=== PATIENT | male | born 1975 | race Caucasian/White ===

== ENCOUNTER 2017-04-25 23:24 | Emergency (ER) | payer SELFPAY ==
--- NOTE | 2017-04-26 00:53 | RADIOLOGY REPORT (SQ) ---
EXAM DESCRIPTION: CHEST PA/LAT CLINICAL HISTORY: 41 years, Male, SOB COMPARISON: None. NUMBER OF VIEWS: 1 TECHNIQUE: Routine radiographic technique. LIMITATIONS: None. FINDINGS: Cardiac size and pulmonary vasculature are normal. Lungs are clear. No pleural effusions or pneumothorax. Bones appear normal on this single view. No free peritoneal gas under the hemidiaphragms. IMPRESSION: Portable AP chest radiograph. 2011 [employer]- All Rights Reserved
[2017-04-26 02:02] LABS: ABSOLUTE BASOPHILS # (AUTO) 0.1 10^3/uL (0.0-0.2); ABSOLUTE LYMPHOCYTES (AUTO) 1.5 10^3/uL (0.5-4.7); ABSOLUTE MONOCYTES (AUTO) 1.2 10^3/uL (0.1-1.4); ABSOLUTE NEUT (AUTO) 11.5 10^3/uL (1.7-8.2); BASOPHILS % (AUTO) 0.8 % (0-2); EOSINOPHILS % (AUTO) 0.2 % (0-6); HEMATOCRIT 44.4 % (37.9-51.0); HEMOGLOBIN 15.9 g/dL (13.5-17.0); HGB HCT DIFFERENCE 3.3; LYMPHOCYTES % (AUTO) 10.5 % (13-45); MEAN CORPUSCULAR HEMOGLOBIN 31.9 pg (27.0-33.4); MEAN CORPUSCULAR HGB CONC 35.8 g/dL (32.0-36.0); MEAN CORPUSCULAR VOLUME 89 fl (80-97); MONOCYTES % (AUTO) 8.4 % (3-13); RED BLOOD COUNT 4.99 10^6/uL (4.35-5.55); RED CELL DISTRIBUTION WIDTH 15.4 % (11.5-14.0); SEGMENTED NEUTROPHILS % (AUTO) 80.1 % (42-78); WHITE BLOOD COUNT 14.3 10^3/uL (4.0-10.5)
[2017-04-26 02:11] LABS: ALANINE AMINOTRANSFERASE 37 U/L (21-72); ALKALINE PHOSPHATASE 51 U/L (38-126); ANION GAP 15 (5-19); ASPARTATE AMINO TRANSFERASE 18 U/L (17-59); BILIRUBIN,DIRECT 0.4 mg/dL (0.0-0.4); BILIRUBIN,TOTAL 1.5 mg/dL (0.2-1.3); BLOOD UREA NITROGEN 13 mg/dL (7-20); CALCIUM 10.4 mg/dL (8.4-10.2); CARBON DIOXIDE 26 mmol/L (22-30); CHLORIDE 103 mmol/L (98-107); CREATINE KINASE 30 U/L (55-170); CREATININE RESULT 1.27 mg/dL (0.52-1.25); GLUCOSE 94 mg/dL (75-110); POTASSIUM 4.2 mmol/L (3.6-5.0); SODIUM 144.4 mmol/L (137-145); TOTAL PROTEIN 7.6 g/dL (6.3-8.2)
[2017-04-26] MEDS ORDERED: MORPHINE SULFATE IR 15 MG TABLET PO ONE (02:19)
[2017-04-26] MEDS ORDERED: NAPROXEN 250 MG TABLET PO ONE (02:19)
[2017-04-26] MEDS ORDERED: LIDOCAINE 5% (700 MG) TRANSDERMAL ADH..PATCH TP ONE (02:19)
[2017-04-26 02:24] LABS: CREATINE KINASE MB 0.92 ng/mL (<4.55)
[2017-04-26 02:29] LABS: TROPONIN I < 0.012 ng/mL
--- NOTE | 2017-04-26 02:45 | ER Document Report ---
ED General - General Chief Complaint: Back Pain Stated Complaint: BACK PAIN Time Seen by Provider: 04/26/17 01:50 Notes: Patient is a 41-year-old male who presents with 36 hours of right thoracic back pain. States this started yesterday after he bent over to unplug a cord and he abruptly developed this back pain. It is described as a severe, constant, aching pain to the right upper back. He notes that he intermittently has pain rating into his right buttock. Nothing improves the pain as he did try Flexeril and a tramadol at home. He states any form of movement worsens the pain. He has a history of chronic back pain but states that this is different than his usual back pain. He denies any bowel or bladder incontinence, urinary retention, focal weakness or numbness, or inability to ambulate. He states he tends he coughs or sneezes this does worsen the pain. He has not seen his primary doctor regarding today's concerns. TRAVEL OUTSIDE OF THE [place] IN LAST 30 DAYS: No - Related Data Allergies/Adverse Reactions: hydromorphone [From Dilaudid] Allergy (Verified 04/26/17 02:42) iron Allergy (Verified 04/26/17 02:42) metronidazole Allergy (Verified 04/26/17 02:42) Sulfa (Sulfonamide Antibiotics) Allergy (Verified 04/26/17 02:42) Past Medical History - General Information source: Patient - Social History Smoking Status: Never Smoker Frequency of alcohol use: None Drug Abuse: None Lives with: Alone Family History: Reviewed & Not Pertinent Patient has suicidal ideation: No Patient has homicidal ideation: No Renal/ Medical History: Denies: Hx Peritoneal Dialysis Review of Systems - Review of Systems Notes: Constitutional: Negative for fever. HENT: Negative for sore throat. Eyes: Negative for visual changes. Cardiovascular: Negative for chest pain. Respiratory: Negative for shortness of breath. Gastrointestinal: Negative for abdominal pain, vomiting or diarrhea. Genitourinary: Negative for dysuria. Musculoskeletal: Positive for back pain. Skin: Negative for rash. Neurological: Negative for headaches, weakness or numbness. 10 point ROS negative except as marked above and in HPI. Physical Exam - Vital signs Vitals: Temp Pulse Resp BP Pulse Ox 97.9 F 136 H 24 H 167/107 H 98 04/25/17 23:32 04/25/17 23:32 04/25/17 23:32 04/25/17 23:32 04/25/17 23:32 Interpretation: Tachycardic, Tachypneic Notes: PHYSICAL EXAMINATION: GENERAL: Well-appearing, well-nourished and in no acute distress. HEAD: Atraumatic, normocephalic. EYES: Pupils equal round and reactive to light, extraocular movements intact, sclera anicteric, conjunctiva are normal. ENT: nares patent, oropharynx clear without exudates. Moist mucous membranes. NECK: Normal range of motion, supple without lymphadenopathy LUNGS: Breath sounds clear to auscultation bilaterally and equal. No wheezes rales or rhonchi. HEART: Regular rate and rhythm without murmurs ABDOMEN: Soft, nontender, normoactive bowel sounds. No guarding, no rebound. No masses appreciated. EXTREMITIES: Normal range of motion, no pitting or edema. No cyanosis. Back: No midline spinal tenderness, step-offs or deformities. There is pain on palpation of the right periscapular region. NEUROLOGICAL: 5 out of 5 strength both distally and proximally bilateral lower extremities. 2+ patellar reflexes bilaterally. No clonus. Sensation grossly intact in the bilateral lower extremities. Patient is able to ambulate without difficulty. PSYCH: Normal mood, normal affect. SKIN: Warm, Dry, normal turgor, no rashes or lesions noted. Course - Re-evaluation Re-evalutation: 04/26/17 02:42 Presentation of a well appearing patient complaining of acute on chronic back pain. No rapid progression of symptoms, systemic symptoms including fevers, chills, weight loss, history of recent bacterial infection, bilateral symptoms, numbness, weakness, difficulty walking, urinary retention or bowel incontinence , personal history of cancer, immunosuppression, diabetes, known AAA, or history of IV drug use. Exam is without point tenderness over vertebral bodies , pulsatile abdominal mass, and patient has symmetric and intact lower extremity strength, sensation, and reflexes without clonus. 2+ symmetric medial malleolar and dorsalis pedis pulses. Patient initially had tachycardia and tachypnea on presentation but these were resolved at the time of my evaluation. In triage a broad panel of laboratories were ordered and are noted to be normal. Patient denies chest pain to me. Troponin however has been ordered and is noted to be normal. Chest x-ray likewise is normal. Based on history and physical, I have a very low suspicion of a concerning etiology of pain including epidural compression syndrome, spinal infection, transverse myelitis, malignancy, abdominal aortic aneurysm, renal colic, acute lower extremity claudication, neurogenic claudication, ankylosing spondylitis, or other intra-abdominal process. Due to absence of concerning risk factors in history and physical as well as absence of rapidly progressive, severe, or bilateral symptoms, will defer imaging at this point. Plan to manage conservatively with outpatient analgesia, analgesia, and physical therapy. - Acetaminophen 650 q 4 + ibuprofen 600 q 6 - Continue normal daily activities as tolerated by pain - Provide with standard musculoskeletal back pain exercise instructions - Instruct to follow up with primary care provider if symptoms not improving - Provide careful return precautions and concerning symptoms to watch for. 04/26/17 02:44 - Vital Signs Vital signs: Temp Pulse Resp BP Pulse Ox 97.4 F 98 18 136/96 H 99 04/26/17 03:00 04/26/17 04:32 04/26/17 04:32 04/26/17 03:00 04/26/17 04:32 - Laboratory Result Diagrams: 04/26/17 01:50 04/26/17 01:50 Laboratory results interpreted by me: 04/26/17 04/26/17 01:50 01:50 WBC 14.3 H RDW 15.4 H Seg Neutrophils % 80.1 H Lymphocytes % 10.5 L Absolute Neutrophils 11.5 H Creatinine 1.27 H Calcium 10.4 H Total Bilirubin 1.5 H Creatine Kinase 30 L - Diagnostic Test Radiology reviewed: Image reviewed, Reports reviewed Radiology results interpreted by me: 04/26/17 02:43 Chest x-ray: No acute pneumothorax or infiltrate - EKG Interpretation by Me Additional EKG results interpreted by me: 04/26/17 02:45 Sinus tachycardia. Rate 109. No ST elevations or depressions. QTC is 415. Discharge - Discharge Clinical Impression: Right-sided thoracic back pain Qualifiers: Chronicity: acute Qualified Code(s): M54.6 - Pain in thoracic spine Condition: Good Disposition: HOME, SELF-CARE Additional Instructions: You have been seen in the Emergency Department (ED) today for back pain. Your workup and exam have not shown any acute abnormalities and you are likely suffering from muscle strain or possible problems with your discs, but there is no treatment that will fix your symptoms at this time. Please take the naproxen that has been prescribed as directed. You should also purchase a local lidocaine cream such as "aspercreme with lidocaine" and use per bottle instructions to the affected area. Apply heat to the area as often as you are able. Continue to keep active and avoid prolonged periods of bed rest. Please follow up with your doctor as soon as possible regarding today's ED visit and your back pain. Return to the ED for worsening back pain, fever, weakness or numbness of either leg, or if you develop either (1) an inability to urinate or have bowel movements, or (2) loss of your ability to control your bathroom functions (if you start having "accidents"), or if you develop other new symptoms that concern you.concern you. Prescriptions: Benzonatate [Tessalon Perles 100 mg Capsule] 100 mg PO Q8HP PRN #40 capsule PRN Reason: Cyclobenzaprine HCl [Flexeril 10 mg Tablet] 10 mg PO TIDP PRN #15 tab PRN Reason: Naproxen 500 mg PO BID #60 tablet Referrals: GIL MARTÍNEZ MD [Primary Care Provider] - Follow up as needed
[2017-04-26 03:03] VITALS: BP 136/96
[2017-04-26] MEDS ORDERED: BENZONATATE 100 MG CAPSULE PO ONE (04:13)
--- NOTE | 2017-04-26 06:22 | EKG REPORT ---
SEVERITY:- BORDERLINE ECG - SINUS TACHYCARDIA BORDERLINE T ABNORMALITIES, INFERIOR LEADS : Confirmed by: Christie Parra MD 26-Apr-2017 06:22:09
== END 2017-04-26 04:32 | disposition home or self-care (01) ==
LOC: ER 23:24
DX: G89.29 Other chronic pain (principal); M54.6 Pain in thoracic spine; Z88.6 Allergy status to analgesic agent; Z88.2 Allergy status to sulfonamides
CPT/HCPCS: 36415; 71020; 80053; 82550; 82553; 84484; 85025; 93005; 93010; 99284

== ENCOUNTER 2017-05-06 22:47 | Emergency (ER) | payer OTHER ==
[2017-05-07] MEDS ORDERED: KETOROLAC TROMETHAMINE INJ/PF 30 MG/1 ML SDV IM ONE (00:27)
[2017-05-07] MEDS ORDERED: LIDOCAINE 5% (700 MG) TRANSDERMAL ADH..PATCH TP ONE (00:27)
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
[2017-05-07 01:47] VITALS: BP 152/88
== END 2017-05-07 01:06 | disposition home or self-care (01) ==
LOC: ER 22:47
DX: M54.6 Pain in thoracic spine (principal); V89.2XXA Person injured in unspecified motor-vehicle accident, traffic, initial encounter; R00.0 Tachycardia, unspecified; Z88.6 Allergy status to analgesic agent; Z88.2 Allergy status to sulfonamides
CPT/HCPCS: 99283; 96372; J1885

== ENCOUNTER 2017-08-09 22:02 | Emergency (ER) | payer OTHER ==
[2017-08-10] MEDS ORDERED: TRAMADOL HCL 50 MG TABLET PO ONE (00:35)
[2017-08-10] MEDS ORDERED: PREDNISONE 20 MG TABLET PO ONE (00:35)
--- NOTE | 2017-08-10 00:36 | ER Document Report ---
ED Medical Screen (RME) - General Chief Complaint: Diarrhea Stated Complaint: ABDOMINAL PAIN Time Seen by Provider: 08/10/17 00:28 Notes: 41-year-old male comes emergency department for chief complaint of lower abdominal pain, up to 20 bowel movements a day with bloody bowel movements, reports a history of ulcerative colitis, states she is getting worse. Previously on prednisone and many other medications although he states prednisone has helped him the most. He denies fever or chills. He denies upper abdominal pain, flank pain, vomiting. TRAVEL OUTSIDE OF THE [place] IN LAST 30 DAYS: No - Related Data Allergies/Adverse Reactions: hydromorphone [From Dilaudid] Allergy (Verified 04/26/17 02:42) iron Allergy (Verified 04/26/17 02:42) metronidazole Allergy (Verified 04/26/17 02:42) Sulfa (Sulfonamide Antibiotics) Allergy (Verified 04/26/17 02:42) Past Medical History Renal/ Medical History: Denies: Hx Peritoneal Dialysis Physical Exam - Vital signs Vitals: Temp Pulse Resp BP Pulse Ox 98.9 F 108 H 16 117/86 H 97 08/09/17 22:31 08/09/17 22:31 08/09/17 22:31 08/09/17 22:31 08/09/17 22:31 - Abdominal Tenderness: Tender - General lower abdominal tenderness, difficult to examine while sitting no obvious guarding, rigidity, or rebound tenderness Course - Vital Signs Vital signs: Temp Pulse Resp BP Pulse Ox 98.9 F 108 H 16 117/86 H 97 08/09/17 22:31 08/09/17 22:31 08/09/17 22:31 08/09/17 22:31 08/09/17 22:31
[2017-08-10 01:53] LABS: ABSOLUTE BASOPHILS # (AUTO) 0.1 10^3/uL (0.0-0.2); ABSOLUTE EOSINOPHILS # (AUTO) 0.5 10^3/uL (0.0-0.6); ABSOLUTE LYMPHOCYTES (AUTO) 1.3 10^3/uL (0.5-4.7); ABSOLUTE MONOCYTES (AUTO) 1.3 10^3/uL (0.1-1.4); ABSOLUTE NEUT (AUTO) 8.6 10^3/uL (1.7-8.2); BASOPHILS % (AUTO) 0.8 % (0-2); HEMATOCRIT 41.5 % (37.9-51.0); HEMOGLOBIN 14.5 g/dL (13.5-17.0); LYMPHOCYTES % (AUTO) 10.9 % (13-45); MEAN CORPUSCULAR HEMOGLOBIN 32.2 pg (27.0-33.4); MEAN CORPUSCULAR VOLUME 92 fl (80-97); MONOCYTES % (AUTO) 11.3 % (3-13); PLATELET COUNT 248 10^3/uL (150-450); RED BLOOD COUNT 4.51 10^6/uL (4.35-5.55); RED CELL DISTRIBUTION WIDTH 13.5 % (11.5-14.0); TOTAL CELLS COUNTED % (AUTO) 100 %; WHITE BLOOD COUNT 11.8 10^3/uL (4.0-10.5)
[2017-08-10 02:12] LABS: ANION GAP 14 (5-19); BLOOD UREA NITROGEN 13 mg/dL (7-20); CALCIUM 9.6 mg/dL (8.4-10.2); CARBON DIOXIDE 26 mmol/L (22-30); CHLORIDE 102 mmol/L (98-107); GLUCOSE 94 mg/dL (75-110); POTASSIUM 4.1 mmol/L (3.6-5.0); SODIUM 141.8 mmol/L (137-145)
[2017-08-10] MEDS ORDERED: FENTANYL CITRATE INJ/PF 100 MCG/2 ML AMPUL IV ONE ×2 (02:29→03:11)
[2017-08-10] MEDS ORDERED: ONDANSETRON HCL INJ/PF 4 MG/2 ML SDV IV ONE (02:30)
[2017-08-10] MEDS ORDERED: METHYLPREDNISOLONE INJ 125 MG/2 ML SDV IV ONE (02:30)
[2017-08-10] MEDS ORDERED: NORMAL SALINE 1000 ML 1,000 ML IV ONE (02:30)
--- NOTE | 2017-08-10 02:32 | ER Document Report ---
ED General - General Chief Complaint: Diarrhea Stated Complaint: ABDOMINAL PAIN Time Seen by Provider: 08/10/17 00:28 Notes: Patient is a 41-year-old male with a past medical history of ulcerative colitis not currently on any immunosuppressive therapies who presents with 3 weeks of generalized abdominal pain with associated diarrhea and hematochezia. He describes this as a severe, constant, generalized cramping pain to his abdomen. States that the symptoms been gradually worsening since onset. Patient states that he was abruptly discontinued off of his chronic prednisone 40 mg daily approximately 1 month ago. He states that since that time he has had symptoms consistent with his typical ulcerative colitis flare. Nothing is new or different that today that prompted a visit to the emergency department but his pain has become intolerable. He states that nothing has worked for this in the past other than prednisone. He has not had any vomiting but states she has been quite nauseated. He has been able to tolerate oral intake but states that this seems to tend to worsen his pain. He has not seen his primary doctor or GI doctor regarding today's concerns. He denies any fever, chest pain, shortness of breath or syncope. TRAVEL OUTSIDE OF THE [place] IN LAST 30 DAYS: No - Related Data Allergies/Adverse Reactions: hydromorphone [From Dilaudid] Allergy (Verified 04/26/17 02:42) iron Allergy (Verified 04/26/17 02:42) metronidazole Allergy (Verified 04/26/17 02:42) Sulfa (Sulfonamide Antibiotics) Allergy (Verified 04/26/17 02:42) Past Medical History - General Information source: Patient - Social History Smoking Status: Never Smoker Frequency of alcohol use: None Drug Abuse: None Lives with: Family Family History: Reviewed & Not Pertinent Patient has suicidal ideation: No Patient has homicidal ideation: No Renal/ Medical History: Denies: Hx Peritoneal Dialysis Review of Systems - Review of Systems Notes: Constitutional: Negative for fever. HENT: Negative for sore throat. Eyes: Negative for visual changes. Cardiovascular: Negative for chest pain. Respiratory: Negative for shortness of breath. Gastrointestinal: Positive for abdominal pain, nausea and diarrhea Genitourinary: Negative for dysuria. Musculoskeletal: Negative for back pain. Skin: Negative for rash. Neurological: Negative for headaches, weakness or numbness. 10 point ROS negative except as marked above and in HPI. Physical Exam - Vital signs Vitals: Temp Pulse Resp BP Pulse Ox 98.9 F 108 H 16 117/86 H 97 08/09/17 22:31 18 22:31 08/09/17 22:31 08/09/17 22:31 08/09/17 22:31 Interpretation: Tachycardic Notes: PHYSICAL EXAMINATION: GENERAL: Appears mildly uncomfortable but in no acute distress HEAD: Atraumatic, normocephalic. EYES: Pupils equal round and reactive to light, extraocular movements intact, sclera anicteric, conjunctiva are normal. ENT: nares patent, oropharynx clear without exudates. Moderately dry mucous membranes. NECK: Normal range of motion, supple without lymphadenopathy LUNGS: Breath sounds clear to auscultation bilaterally and equal. No wheezes rales or rhonchi. HEART: Regular rate and rhythm without murmurs ABDOMEN: Soft, generalized tenderness to palpation but no localized areas of tenderness, normoactive bowel sounds. No guarding, no rebound. No masses appreciated. EXTREMITIES: Normal range of motion, no pitting or edema. No cyanosis. NEUROLOGICAL: No focal neurological deficits. Moves all extremities spontaneously and on command. PSYCH: Somewhat anxious SKIN: Warm, Dry, normal turgor, no rashes or lesions noted. Course - Re-evaluation Re-evalutation: 08/10/17 02:31 Patient presents with 3 weeks of generalized abdominal pain overall unchanged today with associated diarrhea with intermittent periods of small amounts of blood in his diarrhea. He states this feels exactly the same as prior episodes of ulcerative colitis. On abdominal examination patient has some mild generalized abdominal tenderness but no rebound or guarding. He is overall nontoxic in appearance. Vitals are within normal limits with patient states that this episode started after he was abruptly discontinued off prednisone. This is consistent with an acute ulcerative colitis flare. His labs are overall unremarkable. Will proceed with IV fluids, pain control, steroids and reassessment 08/10/17 03:23 Patient has had near complete relief of his pain at this time. He remains nontoxic in appearance, no vomiting, has tolerated oral intake without difficulty. Labs unremarkable without any evidence of anemia, no significant leukocytosis or hepatitis. Repeat abdominal exam remains reassuring. Two-view of the abdomen does not demonstrate any evidence of obstruction or perforation. Will be discharged home with prednisone at his former dose and has been instructed that he will need to follow-up with GI medicine for his chronic ulcerative colitis. Will also send with a limited number of pain medications and nausea medicines. At this time will discharge with return precautions and follow-up recommendations. Verbal discharge instructions given a the bedside and opportunity for questions given. Medication warnings reviewed. Patient is in agreement with this plan and has verbalized understanding of return precautions and the need for primary care follow-up in the next 24-72 hours. - Vital Signs Vital signs: Temp Pulse Resp BP Pulse Ox 98.9 F 108 H 16 117/86 H 97 08/09/17 22:31 08/09/17 22:31 08/09/17 22:31 08/09/17 22:31 08/09/17 22:31 - Laboratory Result Diagrams: 08/10/17 01:30 08/10/17 01:30 Laboratory results interpreted by me: 08/10/17 01:30 WBC 11.8 H Lymphocytes % 10.9 L Absolute Neutrophils 8.6 H - Diagnostic Test Radiology reviewed: Image reviewed, Reports reviewed Radiology results interpreted by me: 08/10/17 03:24 2 view of the abdomen: No free air or evidence of obstruction Discharge - Discharge Clinical Impression: Generalized abdominal pain Ulcerative colitis, acute Qualifiers: Digestive disease complication type: without complication Qualified Code(s): K51.90 - Ulcerative colitis, unspecified, without complications Diarrhea Qualifiers: Diarrhea type: unspecified type Qualified Code(s): R19.7 - Diarrhea, unspecified Condition: Good Disposition: HOME, SELF-CARE Additional Instructions: Please follow-up with your GI doctor and primary care physician at your earliest ability regarding today's visit. Return if you have worsening abdominal pain, B, with a tolerate fluids for more than 12 hours, have worsening of your diarrhea, or have any other symptoms that are worrisome to you. Please use the [place] at that you have been sent home with a very limited basis for pain control. Take the steroids as prescribed. Prescriptions: Prednisone 40 mg PO DAILY #60 tablet
[2017-08-10] MEDS ORDERED: FENTANYL CITRATE INJ/PF 100 MCG/2 ML AMPUL ONE (03:11)
--- NOTE | 2017-08-10 03:31 | RADIOLOGY REPORT (SQ) ---
EXAM DESCRIPTION: ABDOMEN 2 VIEWS CLINICAL HISTORY: eval free air, obstruction COMPARISON: None. FINDINGS: 2 views of the abdomen. No free intraperitoneal air. Air-filled loops of nondilated large and small bowel. No abnormal calcifications. No acute osseous abnormalities. Lung bases are clear. IMPRESSION: Nonobstructive bowel gas pattern.
[2017-08-10] MEDS ORDERED: ONDANSETRON ODT 4 MG TAB (6 TAB/ER DISP) PO PRN (03:41)
[2017-08-10] MEDS ORDERED: HYDROCODONE/ACETAMINOPHEN 5-325 MG (6 TAB/ER DISP) PO PRN (03:41)
[2017-08-10 04:45] VITALS: BP 100/67
== END 2017-08-10 04:45 | disposition home or self-care (01) ==
LOC: ER 22:02
DX: K51.90 Ulcerative colitis, unspecified, without complications (principal); R10.84 Generalized abdominal pain; K92.1 Melena; R19.7 Diarrhea, unspecified; R11.0 Nausea; Z88.5 Allergy status to narcotic agent; Z88.8 Allergy status to other drugs, medicaments and biological substances; Z88.2 Allergy status to sulfonamides
CPT/HCPCS: 96376; 99284; 96361; 96374; 96375; 36415; 85025; 80048; 74019; J3010; J2930; J7512; J2405; J7030

== ENCOUNTER 2017-08-12 12:06 | Emergency (ER) | payer SELFPAY ==
--- NOTE | 2017-08-12 14:48 | ER Document Report ---
ED Medical Screen (RME) - General Chief Complaint: Flank Pain Stated Complaint: FLANK PAIN Time Seen by Provider: 08/12/17 14:42 Mode of Arrival: Ambulatory Information source: Patient Notes: 41 yo male c/o severe sharp left flank pain that radiates to the LLQ which is different that the with ulcerativ colitis pain usually managed with prednisone 40mg daily which he is still on. Dry heaves, nausea, diarrhea. No hx of kidney stones. No fever. Diarrhea today 9 with blood- red., bleeding getting worse for a month. Moaning and groaning. TRAVEL OUTSIDE OF THE [place] IN LAST 30 DAYS: No - Related Data Allergies/Adverse Reactions: hydromorphone [From Dilaudid] Allergy (Verified 04/26/17 02:42) iron Allergy (Verified 04/26/17 02:42) metronidazole Allergy (Verified 04/26/17 02:42) Sulfa (Sulfonamide Antibiotics) Allergy (Verified 04/26/17 02:42) Past Medical History Renal/ Medical History: Denies: Hx Peritoneal Dialysis Physical Exam - Vital signs Vitals: Temp Pulse Resp BP Pulse Ox 97.6 F 107 H 20 108/71 99 08/12/17 12:59 08/12/17 12:59 08/12/17 12:59 08/12/17 12:59 08/12/17 12:59 Course - Vital Signs Vital signs: Temp Pulse Resp BP Pulse Ox 97.6 F 107 H 20 108/71 99 08/12/17 12:59 08/12/17 12:59 08/12/17 12:59 08/12/17 12:59 08/12/17 12:59
[2017-08-12] MEDS ORDERED: NORMAL SALINE 1000 ML 1,000 ML IV ONE ×2 (14:49→17:20)
[2017-08-12] MEDS ORDERED: MORPHINE SULFATE 10 MG/ML INJ IM ONE (14:49)
[2017-08-12] MEDS ORDERED: ONDANSETRON 4 MG TAB.RAPDIS PO ONE (14:50)
--- NOTE | 2017-08-12 15:39 | ER Document Report ---
ED General - General Chief Complaint: Flank Pain Stated Complaint: FLANK PAIN Time Seen by Provider: 08/12/17 14:42 Mode of Arrival: Ambulatory Notes: 41-year-old male with sudden onset of left flank pain shooting down into the groin. No prior history of kidney stones. Has a history of Crohn's disease and always has diarrhea. States that this is very different than anything he has ever had before. Is rated as a 10/10 on a numeric pain scale. TRAVEL OUTSIDE OF THE [place] IN LAST 30 DAYS: No - HPI Onset: Just prior to arrival Onset/Duration: Sudden Quality of pain: Sharp Severity: Severe Pain Level: 5 Associated symptoms: Nausea, Vomiting Exacerbated by: Denies Relieved by: Denies Similar symptoms previously: No - Related Data Allergies/Adverse Reactions: hydromorphone [From Dilaudid] Allergy (Verified 04/26/17 02:42) iron Allergy (Verified 04/26/17 02:42) metronidazole Allergy (Verified 04/26/17 02:42) Sulfa (Sulfonamide Antibiotics) Allergy (Verified 04/26/17 02:42) Past Medical History - General Information source: Patient - Social History Smoking Status: Never Smoker Frequency of alcohol use: None Drug Abuse: None Lives with: Family Family History: Reviewed & Not Pertinent Patient has suicidal ideation: No Patient has homicidal ideation: No - Past Medical History Cardiac Medical History: Reports: None Pulmonary Medical History: Reports: None EENT Medical History: Reports: None Neurological Medical History: Reports: None Endocrine Medical History: Reports: None Renal/ Medical History: Reports: None. Denies: Hx Peritoneal Dialysis Malignancy Medical History: Reports None GI Medical History: Reports: Other - ulcerative colitis Review of Systems - Review of Systems Constitutional: denies: Chills, Fever, Malaise, Weakness EENT: denies: Blurred vision, Tearing, Double vision, Ear pain Cardiovascular: denies: Chest pain, Palpitations, Heart racing, Orthopnea, Dyspnea Respiratory: denies: Cough, Hurts to breathe, Short of breath, Wheezing Gastrointestinal: Abdominal pain, Diarrhea, Nausea, Vomiting Genitourinary: Flank pain. denies: Burning, Dysuria, Discharge, Hematuria, Incontinence Male Genitourinary: No symptoms reported Musculoskeletal: Back pain. denies: Gout, Joint pain Skin: denies: Lesions, Lumps, Rash Hematologic/Lymphatic: denies: Blood clots, Easy bleeding, Easy bruising, Swollen glands Neurological/Psychological: denies: Dementia, Depression, Hallucinations, Weakness Physical Exam - Vital signs Vitals: Temp Pulse Resp BP Pulse Ox 97.6 F 107 H 20 108/71 99 08/12/17 12:59 08/12/17 12:59 08/12/17 12:59 08/12/17 12:59 08/12/17 12:59 Interpretation: Tachycardic - General General appearance: Appears well, Alert - HEENT Head: Normocephalic, Atraumatic Eyes: Normal Pupils: PERRL - Respiratory Respiratory status: No respiratory distress Chest status: Nontender Breath sounds: Normal Chest palpation: Normal - Cardiovascular Rhythm: Tachycardia Heart sounds: Normal auscultation Murmur: No - Abdominal Inspection: Normal Distension: No distension Bowel sounds: Normal Tenderness: Tender, Other - Mild tenderness in the left lower quadrant there is no guarding. No rebound Organomegaly: No organomegaly - Back Back: Normal, Nontender - Extremities General upper extremity: Normal inspection, Nontender, Normal color, Normal ROM , Normal temperature General lower extremity: Normal inspection, Nontender, Normal color, Normal ROM , Normal temperature, Normal weight bearing. No: Edvin's sign - Neurological Neuro grossly intact: Yes Cognition: Normal Orientation: AAOx4 Maeve Coma Scale Eye Opening: Spontaneous Enloe Coma Scale Verbal: Oriented Enloe Coma Scale Motor: Obeys Commands Enloe Coma Scale Total: 15 Speech: Normal Motor strength normal: LUE, RUE, LLE, RLE Sensory: Normal - Psychological Associated symptoms: Normal affect, Normal mood - Skin Skin Temperature: Warm Skin Moisture: Dry Skin Color: Normal Course - Re-evaluation Re-evalutation: 08/12/17 18:20 Patient with obvious 3 mm mid ureter kidney stone. Given Toradol, morphine, fluids, Flomax. Feeling better at this time. Will finish fluid boluses and anticipate DC if urine does not look like there is an infection. 08/12/17 19:19 Laboratory 08/12/17 08/12/17 08/12/17 15:28 15:28 18:34 WBC 12.0 H RBC 4.31 L Hgb 13.8 Hct 39.9 MCV 93 MCH 31.9 MCHC 34.5 RDW 13.5 Plt Count 239 Seg Neutrophils % 73.4 Lymphocytes % 8.6 L Monocytes % 15.1 H Eosinophils % 2.2 Basophils % 0.7 Absolute Neutrophils 8.8 H Absolute Lymphocytes 1.0 Absolute Monocytes 1.8 H Absolute Eosinophils 0.3 Absolute Basophils 0.1 Sodium 143.2 Potassium 4.1 Chloride 104 Carbon Dioxide 27 Anion Gap 12 BUN 14 Creatinine 1.44 H Est GFR ( Amer) > 60 Est GFR (Non-Af Amer) 54 L Glucose 112 H Calcium 9.8 Total Bilirubin 0.8 Direct Bilirubin 0.2 Neonat Total Bilirubin Not Reportable Neonat Direct Bilirubin Not Reportable Neonat Indirect Bili Not Reportable AST 16 L ALT 27 Alkaline Phosphatase 46 Total Protein 6.8 Albumin 4.4 Urine Color YANET Urine Appearance CLOUDY Urine pH 5.0 Ur Specific Cavalier 1.032 Urine Protein 100 H Urine Glucose (UA) NEGATIVE Urine Ketones NEGATIVE Urine Blood LARGE H Urine Nitrite NEGATIVE Urine Bilirubin SMALL H Urine Urobilinogen NEGATIVE Ur Leukocyte Esterase NEGATIVE Urine RBC (Auto) 146 Squamous Epi Cells Auto 1 Calcium Oxalate Cr Auto MODERATE Urine Mucus (Auto) MANY Urine Ascorbic Acid 40 H Abdomen/Pelvis CT 08/12/17 15:39 IMPRESSION: 1. 3 MM CALCULUS IN THE MID LEFT URETER. MILD OBSTRUCTIVE CHANGES. 2. GALLSTONES. 3. NO OTHER SIGNIFICANT OR ACUTE PROCESS IN THE ABDOMEN OR PELVIS. - Vital Signs Vital signs: Temp Pulse Resp BP Pulse Ox 98.0 F 87 18 108/64 95 08/12/17 18:59 08/12/17 18:59 08/12/17 18:59 08/12/17 18:59 08/12/17 18:59 - Laboratory Result Diagrams: 08/12/17 15:28 08/12/17 15:28 Laboratory results interpreted by me: 08/12/17 08/12/17 08/12/17 15:28 15:28 18:34 WBC 12.0 H RBC 4.31 L Lymphocytes % 8.6 L Monocytes % 15.1 H Absolute Neutrophils 8.8 H Absolute Monocytes 1.8 H Creatinine 1.44 H Est GFR (Non-Af Amer) 54 L Glucose 112 H AST 16 L Urine Protein 100 H Urine Blood LARGE H Urine Bilirubin SMALL H Urine Ascorbic Acid 40 H Discharge - Discharge Clinical Impression: Ureterolithiasis Condition: Good Disposition: HOME, SELF-CARE Instructions: Kidney Stone ([facility]) Prescriptions: Hydrocodone/Acetaminophen [Floral 5-325 mg Tablet] 1 tab PO TID 3 Days #12 tablet Ibuprofen [Motrin 600 Mg Tablet] 600 mg PO TID #15 tablet Ondansetron [Zofran Odt 4 mg Tablet] 1 - 2 tab PO Q4H PRN #15 tab.rapdis PRN Reason: For Nausea/Vomiting Tamsulosin HCl [Flomax 0.4 mg Cap.sr] 0.4 mg PO DAILY #7 cap.sr.24h Referrals: ASUNCION ROBBINS MD [Primary Care Provider] - Follow up as needed KATHRYN NAVARRO MD [NO LOCAL MD] - Follow up in 1 week
[2017-08-12] MEDS ORDERED: KETOROLAC TROMETHAMINE INJ/PF 30 MG/1 ML SDV IV ONE (15:40)
[2017-08-12 15:47] LABS: ABSOLUTE BASOPHILS # (AUTO) 0.1 10^3/uL (0.0-0.2); ABSOLUTE EOSINOPHILS # (AUTO) 0.3 10^3/uL (0.0-0.6); ABSOLUTE MONOCYTES (AUTO) 1.8 10^3/uL (0.1-1.4); ABSOLUTE NEUT (AUTO) 8.8 10^3/uL (1.7-8.2); BASOPHILS % (AUTO) 0.7 % (0-2); EOSINOPHILS % (AUTO) 2.2 % (0-6); HEMATOCRIT 39.9 % (37.9-51.0); HEMOGLOBIN 13.8 g/dL (13.5-17.0); LYMPHOCYTES % (AUTO) 8.6 % (13-45); MEAN CORPUSCULAR HEMOGLOBIN 31.9 pg (27.0-33.4); MEAN CORPUSCULAR HGB CONC 34.5 g/dL (32.0-36.0); MEAN CORPUSCULAR VOLUME 93 fl (80-97); MONOCYTES % (AUTO) 15.1 % (3-13); PLATELET COUNT 239 10^3/uL (150-450); RED BLOOD COUNT 4.31 10^6/uL (4.35-5.55); RED CELL DISTRIBUTION WIDTH 13.5 % (11.5-14.0); SEGMENTED NEUTROPHILS % (AUTO) 73.4 % (42-78); TOTAL CELLS COUNTED % (AUTO) 100 %
[2017-08-12 16:07] LABS: ALANINE AMINOTRANSFERASE 27 U/L (21-72); ALBUMIN 4.4 g/dL (3.5-5.0); ALKALINE PHOSPHATASE 46 U/L (38-126); ANION GAP 12 (5-19); ASPARTATE AMINO TRANSFERASE 16 U/L (17-59); BILIRUBIN,DIRECT 0.2 mg/dL (0.0-0.4); BILIRUBIN,TOTAL 0.8 mg/dL (0.2-1.3); BLOOD UREA NITROGEN 14 mg/dL (7-20); CALCIUM 9.8 mg/dL (8.4-10.2); CARBON DIOXIDE 27 mmol/L (22-30); CHLORIDE 104 mmol/L (98-107); GLUCOSE 112 mg/dL (75-110); POTASSIUM 4.1 mmol/L (3.6-5.0); SODIUM 143.2 mmol/L (137-145); TOTAL PROTEIN 6.8 g/dL (6.3-8.2)
--- NOTE | 2017-08-12 16:24 | RADIOLOGY REPORT (SQ) ---
EXAM DESCRIPTION: CT ABD/PELVIS NO ORAL OR IV COMPLETED DATE/TIME: 08/12/2017 4:14 pm REASON FOR STUDY: left flank pain COMPARISON: None. TECHNIQUE: CT scan of the abdomen and pelvis performed without intravenous or oral contrast. Images reviewed with lung, soft tissue, and bone windows. Reconstructed coronal and sagittal MPR images revi ewed. All images stored on PACS. All CT scanners at this facility use dose modulation, iterative reconstruction, and/or weight based d osing when appropriate to reduce radiation dose to as low as reasonably achievable (ALARA). [facility]: Dose Right [facility]: CareDose [facility]: Dose Right [facility]: Teradose 4D [facility]: Smart Demandware RADIATION DOSE: CT Rad equipment meets quality standard of care and radiation dose reduction techniq ues were employed. CTDIvol: 8.6 mGy. DLP: 465 mGy-cm.mGy. LIMITATIONS: None. FINDINGS: LOWER CHEST: No significant findings. No nodules or infiltrates. NON-CONTRASTED LIVER, SPLEEN, ADRENALS: Evaluation limited by lack of IV contrast. No identified sign ificant masses. PANCREAS: No masses. No peripancreatic inflammatory changes. GALLBLADDER: Gallstones. No inflammatory changes to suggest cholecystitis. RIGHT KIDNEY AND URETER: No suspicious masses. Assessment limited by lack of IV contrast. No signif icant calcifications. No hydronephrosis or hydroureter. LEFT KIDNEY AND URETER: No suspicious masses. Assessment limited by lack of IV contrast. 3 mm calcu cherrie in the mid ureter at the level of L3. Mild hydronephrosis and proximal hydroureter. AORTA AND RETROPERITONEUM: No aneurysm. No retroperitoneal masses or adenopathy. BOWEL AND PERITONEAL CAVITY: No obvious masses or inflammatory changes. No free fluid. APPENDIX: Not visualized. PELVIS, BLADDER, AND ABDOMINAL WALL:No abnormal masses. No free fluid. Bladder normal. BONES: No significant findings. OTHER: No other significant finding. IMPRESSION: 1. 3 MM CALCULUS IN THE MID LEFT URETER. MILD OBSTRUCTIVE CHANGES. 2. GALLSTONES. 3. NO OTHER SIGNIFICANT OR ACUTE PROCESS IN THE ABDOMEN OR PELVIS. COMMENT: Quality ID # [id number]: Final reports with documentation of one or more dose reduction techniques (e.g., Automated exposure control, adjustment of the mA and/or kV according to patient size, use of iterative reconstruction technique) TECHNICAL DOCUMENTATION: JOB ID: [id number] [employer]- All Rights Reserved
[2017-08-12] MEDS ORDERED: TAMSULOSIN HCL 0.4 MG CAP.SR.24H PO ONE (17:19)
[2017-08-12 18:56] LABS: APPEARANCE,URINE CLOUDY; BILIRUBIN,URINE SMALL (NEGATIVE); CALCIUM OXALATE CRYSTALS,URINE MODERATE /HPF; COLOR,URINE AMBER; GLUCOSE, URINE NEGATIVE (NEGATIVE); KETONES,URINE NEGATIVE (NEGATIVE); LEUKOCYTE ESTERASE,URINE NEGATIVE (NEGATIVE); NITRITE,URINE NEGATIVE (NEGATIVE); PROTEIN,URINE 100 mg/dL (NEGATIVE); URINE SPECIFIC GRAVITY 1.032; UROBILINOGEN,URINE NEGATIVE mg/dL (<2.0)
[2017-08-12 19:01] VITALS: BP 108/64
== END 2017-08-12 19:09 | disposition home or self-care (01) ==
LOC: ER 12:06
DX: N20.1 Calculus of ureter (principal); R10.9 Unspecified abdominal pain; R10.30 Lower abdominal pain, unspecified; K50.90 Crohn's disease, unspecified, without complications; R19.7 Diarrhea, unspecified
CPT/HCPCS: 99284; 96372; 96361; 96374; 36415; 87086; 85025; 80053; 81001; 74176; S0119; J1885; J2270; J7030

== ENCOUNTER 2017-11-17 17:49 | Inpatient (IN) | payer SELFPAY ==
--- NOTE | 2017-11-17 19:02 | ER Document Report ---
ED Medical Screen (RME) - General Chief Complaint: Abnormal Lab Results Stated Complaint: ABNORMAL LABS Time Seen by Provider: 11/17/17 18:51 Mode of Arrival: Ambulatory Information source: Patient TRAVEL OUTSIDE OF THE [place] IN LAST 30 DAYS: No - HPI Onset: Last week Onset/Duration: Gradual Quality of pain: Cramping, Dull Severity: Moderate Associated Symptoms: Cough (nonproductive), Diarrhea Exacerbated by: Denies Relieved by: Denies Similar symptoms previously: Yes - W/ FLARE OF COLITIS (COUGH IS NEW) Recently seen / treated by doctor: Yes - PCP, YESTERDAY - Related Data Smoking: Non-smoker Frequency of alcohol use: None Drug Abuse: None Allergies/Adverse Reactions: hydromorphone [From Dilaudid] Allergy (Verified 11/17/17 17:50) iron Allergy (Verified 11/17/17 17:50) metronidazole Allergy (Verified 11/17/17 17:50) Sulfa (Sulfonamide Antibiotics) Allergy (Verified 11/17/17 17:50) Home Medications: Echinace & Goldenseal Root, Frieda-C, Vitamin A, Flaxseed oil, Prednisone, Simethicone, Tart Mai, Biotin, Marshmellow root, Vitamin D3, Apple Cider vinegar, Pepcid, Slippery Elm, Boswellia Extract, Healthy digestion (tumeric & triphala herbs), Meclizine, tessalon perles Past Medical History - General Information source: Patient - Social History Chew tobacco use (# tins/day): No Frequency of alcohol use: Rare Drug Abuse: None - Past Medical History Cardiac Medical History: Reports: None Pulmonary Medical History: Reports: None EENT Medical History: Reports: None Neurological Medical History: Reports: None Endocrine Medical History: Reports: None Renal/ Medical History: Reports: None. Denies: Hx Peritoneal Dialysis Malignancy Medical History: Reports None GI Medical History: Reports: Hx Ulcerative Colitis Musculoskeltal Medical History: Reports None Psychiatric Medical History: Reports: None Surgical Hx: Negative Review of Systems - Review of Systems Constitutional: Diaphoresis EENT: No symptoms reported Cardiovascular: No symptoms reported Respiratory: See HPI Gastrointestinal: See HPI Genitourinary: No symptoms reported Musculoskeletal: No symptoms reported Skin: No symptoms reported Neurological/Psychological: Other - VERTIGO Physical Exam - Vital signs Vitals: Temp Pulse Resp BP Pulse Ox 98.4 F 116 H 26 H 149/104 H 96 11/17/17 17:59 11/17/17 17:59 11/17/17 17:59 11/17/17 17:59 11/17/17 17:59 Interpretation: Hypertensive, Tachycardic, Tachypneic. No: Febrile - General General appearance: Appears well, Alert In distress: None - HEENT Head: Normocephalic Eyes: Normal Conjunctiva: Normal Ears: Normal Nasal: Normal Mouth/Lips: Normal Mucous membranes: Normal - Respiratory Respiratory status: No respiratory distress Breath sounds: Normal - Cardiovascular Rhythm: Regular, Tachycardia Heart sounds: Normal auscultation Murmur: No - Abdominal Inspection: Normal Distension: No distension Bowel sounds: Normal Tenderness: Tender - MILD, GENERALIZED - Extremities General upper extremity: Normal inspection General lower extremity: Normal inspection - Neurological Neuro grossly intact: Yes Cognition: Normal Orientation: AAOx4 - Psychological Associated symptoms: Normal affect, Normal mood - Skin Skin Temperature: Warm Skin Moisture: Dry Skin Color: Normal Skin Turgor: Elastic Course - Vital Signs Vital signs: Temp Pulse Resp BP Pulse Ox 98.4 F 116 H 26 H 149/104 H 96 11/17/17 17:59 11/17/17 17:59 11/17/17 17:59 11/17/17 17:59 11/17/17 17:59
[2017-11-17 19:42] LABS: HEMATOCRIT 42.6 % (37.9-51.0); HEMOGLOBIN 14.4 g/dL (13.5-17.0); MEAN CORPUSCULAR HEMOGLOBIN 29.7 pg (27.0-33.4); MEAN CORPUSCULAR HGB CONC 33.7 g/dL (32.0-36.0); MEAN CORPUSCULAR VOLUME 88 fl (80-97); PLATELET COUNT 310 10^3/uL (150-450); RED BLOOD COUNT 4.84 10^6/uL (4.35-5.55); RED CELL DISTRIBUTION WIDTH 15.3 % (11.5-14.0); WHITE BLOOD COUNT 12.7 10^3/uL (4.0-10.5)
[2017-11-17 20:07] LABS: ALANINE AMINOTRANSFERASE 40 U/L (21-72); ALBUMIN 4.8 g/dL (3.5-5.0); ALKALINE PHOSPHATASE 57 U/L (38-126); ANION GAP 15 (5-19); ASPARTATE AMINO TRANSFERASE 19 U/L (17-59); BILIRUBIN,DIRECT 0.3 mg/dL (0.0-0.4); BILIRUBIN,TOTAL 1.2 mg/dL (0.2-1.3); BLOOD UREA NITROGEN 15 mg/dL (7-20); CALCIUM 9.9 mg/dL (8.4-10.2); CARBON DIOXIDE 29 mmol/L (22-30); CHLORIDE 101 mmol/L (98-107); GLUCOSE 131 mg/dL (75-110); POTASSIUM 5.4 mmol/L (3.6-5.0); SODIUM 145.2 mmol/L (137-145); TOTAL PROTEIN 7.8 g/dL (6.3-8.2)
[2017-11-17 20:09] LABS: ABSOLUTE LYMPHOCYTES# (MANUAL) 0.9 10^3/uL (0.5-4.7); ABSOLUTE MONOCYTES # (MANUAL) 0.9 10^3/uL (0.1-1.4); ABSOLUTE NEUTROPHILS# (MANUAL) 10.9 10^3/uL (1.7-8.2); BASOPHILS % (MANUAL) 0 % (0-2); EOSINOPHILS % (MANUAL) 0 % (0-6); LYMPHOCYTES % (MANUAL) 7 % (13-45); MONOCYTES % (MANUAL) 7 % (3-13); SEGMENTED NEUTROPHILS % (MAN) 86 % (42-78); TOTAL CELLS COUNTED 100
[2017-11-17 20:10] LABS: ANISOCYTOSIS SLIGHT; PLATELET COMMENT ADEQUATE; TOXIC GRANULATION SLIGHT
[2017-11-17 20:19] LABS: ERYTHROCYTE SEDIMENTATION RATE 32 mm/hr (0-15)
--- NOTE | 2017-11-17 20:37 | RADIOLOGY REPORT (SQ) ---
EXAM DESCRIPTION: CHEST 2 VIEWS COMPLETED DATE/TIME: 11/17/2017 8:12 pm REASON FOR STUDY: PERSISTENT DRY COUGH COMPARISON: 04/26/2017 EXAM PARAMETERS: NUMBER OF VIEWS: two views TECHNIQUE: Digital Frontal and Lateral radiographic views of the chest acquired. RADIATION DOSE: NA LIMITATIONS: none FINDINGS: LUNGS AND PLEURA: No opacities, masses or pneumothorax. No pleural effusion. MEDIASTINUM AND HILAR STRUCTURES: No masses or contour abnormalities. HEART AND VASCULAR STRUCTURES: Heart normal size. No evidence for failure. BONES: No acute findings. HARDWARE: None in the chest. OTHER: No other significant finding. IMPRESSION: NO ACUTE RADIOGRAPHIC FINDING IN THE CHEST. TECHNICAL DOCUMENTATION: JOB ID: [id number] [employer]- All Rights Reserved Reading location - IP/workstation name: [email or web address]
--- NOTE | 2017-11-17 21:17 | ER Document Report ---
ED General - General Chief Complaint: Abnormal Lab Results Stated Complaint: ABNORMAL LABS Time Seen by Provider: 11/17/17 18:51 Mode of Arrival: Ambulatory Notes: Patient is a 42-year-old male who presents emergency department with multiple complaints. Patient states that the main reason he was referred to the emergency department was by his primary care. Patient states that he goes to [place] for his primary care and went in for recent 3-4 weeks cough history that he associated with seasonal allergies. Patient states that he is taking home Lou without any improvement. He states that he had blood work drawn and was told he had an elevated white blood cell count of 17 and was referred to the emergency department. He denies any fevers or chills. Patient admits to indigestion. Patient does admit to generalized abdominal pain that he states is consistent with his ulcerative colitis. Patient also admits to chest pain on the left chest wall it is reproducible palpation that he states he has had since the middle of September. He describes it as a pressure that waxes and wanes in severity and spontaneously resolves. He describes it as a 2-3 out of 5 in severity. States that the last for approximately 15min to 2 hours. He denies any associated shortness of breath, dyspnea, dizziness, left arm pain, jaw pain. He states this started once he was discharged from the hospital stopped taking pain medication. Patient's past medical history is significant for recent hospitalization from the middle August to September for an ulcerative colitis flare. Patient states that he was hospitalized for approximately 2 weeks on IV pain medications and steroids for his symptoms. Patient states that he did have a colonoscopy at this time significant inflammation. He denies any active GI bleed. Patient states that he was discharged home has been taking 60 mg prednisone a day for the next 24 days. Patient states that he is due to follow-up with his rn radiation on December 01. Patient's past medical history significant for seasonal asthma, seasonal allergies, ulcerative colitis, GERD Past surgical history significant for previous varicocele repair, colonoscopy Social history: Denies any tobacco, drug use. Admits to occasional alcohol use. Patient's home medications are Tessalon Perles, prednisone, Pepcid, meclizine and [id number] supplements. TRAVEL OUTSIDE OF THE [place] IN LAST 30 DAYS: No - Related Data Allergies/Adverse Reactions: hydromorphone [From Dilaudid] Allergy (Verified 11/17/17 17:50) iron Allergy (Verified 11/17/17 17:50) metronidazole Allergy (Verified 11/17/17 17:50) Sulfa (Sulfonamide Antibiotics) Allergy (Verified 11/17/17 17:50) Home Medications: Echinace & Goldenseal Root, Frieda-C, Vitamin A, Flaxseed oil, Prednisone, Simethicone, Tart Mai, Biotin, Marshmellow root, Vitamin D3, Apple Cider vinegar, Pepcid, Slippery Elm, Boswellia Extract, Healthy digestion (tumeric & triphala herbs), Meclizine, tessalon perles Past Medical History - General Information source: Patient - Social History Smoking Status: Former Smoker Chew tobacco use (# tins/day): No Frequency of alcohol use: Rare Drug Abuse: None Family History: Reviewed & Not Pertinent Patient has suicidal ideation: No Patient has homicidal ideation: No - Past Medical History Cardiac Medical History: Reports: None Pulmonary Medical History: Reports: None EENT Medical History: Reports: None Neurological Medical History: Reports: None Endocrine Medical History: Reports: None Renal/ Medical History: Reports: None. Denies: Hx Peritoneal Dialysis Malignancy Medical History: Reports None GI Medical History: Reports: Hx Ulcerative Colitis Musculoskeltal Medical History: Reports None Psychiatric Medical History: Reports: None Surgical Hx: Negative Physical Exam - Vital signs Vitals: Temp Pulse Resp BP Pulse Ox 98.4 F 116 H 26 H 149/104 H 96 11/17/17 17:59 11/17/17 17:59 11/17/17 17:59 11/17/17 17:59 11/17/17 17:59 - Notes Notes: PHYSICAL EXAM GENERAL: Alert, interacts well. HEAD: Normocephalic, atraumatic. EYES: Pupils equal, round, and reactive to light. Extraocular movements intact. ENT: Oral mucosa moist, tongue midline. NECK: Full range of motion. Supple. Trachea midline. LUNGS: Clear to auscultation bilaterally, no wheezes, rales, or rhonchi. No respiratory distress. HEART: Regular rate and rhythm. No murmurs, gallops, or rubs. ABDOMEN: Soft, nondistended, mild diffuse abdominal pain but focal moderate epigastric tenderness.. No guarding, rebound, or rigidity.. Bowel sounds present in all 4 quadrants. EXTREMITIES: Moves all 4 extremities spontaneously. No edema, radial and dorsalis pedis pulses 2/4 bilaterally. No cyanosis. NEUROLOGICAL: Alert and oriented x4. Normal speech. PSYCH: Normal affect, normal mood. SKIN: Warm, dry, normal turgor. No rashes or lesions noted. Course - Re-evaluation Re-evalutation: 11/18/17 03:30 Patient is a 42-year-old male who is hemodynamically stable, no acute distress and afebrile. Patient presents with multiple complaints but primary concern for epigastric abdominal pain. CBC stable with mild leukocytosis without evidence of anemia. Chemistry with elevation in lipase at 3500. Per review of patient's chart from [place], this is a new elevation with a previous lipase at the end of August. Patient without a history of acute pancreatitis. CT the abdomen pelvis without evidence of. He pancreatic inflammation, pseudocyst. Ultrasound of the right upper quadrant without evidence of common bile duct stone but presence of cholelithiasis. Patient denies daily alcohol use. Concern for possible obstruction of pancreatic duct. Patient has been accepted to hospitalist service and surgery consulted. Patient agreeable with admission. - Vital Signs Vital signs: Temp Pulse Resp BP Pulse Ox 98.1 F 116 H 20 132/92 H 97 11/18/17 05:00 11/17/17 17:59 11/18/17 05:00 11/18/17 05:00 11/18/17 05:01 - Laboratory Result Diagrams: 11/17/17 19:30 11/17/17 19:30 Laboratory results interpreted by me: 11/17/17 11/17/17 11/17/17 19:30 19:30 21:16 WBC 12.7 H RDW 15.3 H Seg Neuts % (Manual) 86 H Lymphocytes % (Manual) 7 L Abs Neuts (Manual) 10.9 H ESR 32 H Sodium 145.2 H Potassium 5.4 H Glucose 131 H Lipase 3557.0 H Urine Ascorbic Acid 40 H - Diagnostic Test Radiology reviewed: Image reviewed, Reports reviewed Discharge - Discharge Clinical Impression: Pancreatitis Condition: Good Disposition: ADMITTED INPATIENT Admitting Provider: Hospitalist Unit Admitted: Telemetry
[2017-11-17 21:35] LABS: APPEARANCE,URINE CLEAR; BILIRUBIN,URINE NEGATIVE (NEGATIVE); COLOR,URINE YELLOW; GLUCOSE, URINE NEGATIVE (NEGATIVE); KETONES,URINE NEGATIVE (NEGATIVE); LEUKOCYTE ESTERASE,URINE NEGATIVE (NEGATIVE); NITRITE,URINE NEGATIVE (NEGATIVE); PROTEIN,URINE NEGATIVE (NEGATIVE); URINE SPECIFIC GRAVITY 1.018; UROBILINOGEN,URINE NEGATIVE mg/dL (<2.0)
[2017-11-17] MEDS ORDERED: NORMAL SALINE 1000 ML 1,000 ML IV ONE (21:46)
--- NOTE | 2017-11-17 22:58 | RADIOLOGY REPORT (SQ) ---
EXAM DESCRIPTION: CT ABD/PELVIS WITH IV ONLY COMPLETED DATE/TIME: 11/17/2017 10:41 pm REASON FOR STUDY: elevated lipase, abdominal tenderness COMPARISON: None. TECHNIQUE: CT scan of the abdomen and pelvis performed using helical scanning technique with dynamic intravenous contrast injection. No oral contrast. Images reviewed with lung, soft tissue, and bone windows. Reconstructed coronal and sagittal MPR images reviewed. Delayed images for evaluation of the urinary system also acquired. All images stored on PACS. All CT scanners at this facility use dose modulation, iterative reconstruction, and/or weight based d osing when appropriate to reduce radiation dose to as low as reasonably achievable (ALARA). [facility]: Dose Right [facility]: CareDose [facility]: Dose Right [facility]: Teradose 4D [facility]: tagWALLET CONTRAST TYPE AND DOSE: contrast/concentration: Isovue 370.00 mg/ml; Total Contrast Delivered: 100.0 ml; Total Saline Delivered: 25.0 ml RENAL FUNCTION: None required. The patient is less than 50 years old. RADIATION DOSE: CT Rad equipment meets quality standard of care and radiation dose reduction techniq ues were employed. CTDIvol: 13.9 - 13.9 mGy. DLP: 1529 mGy-cm.. LIMITATIONS: None. FINDINGS: LOWER CHEST: No significant findings. No nodules or infiltrates. LIVER: Normal size. No masses. No dilated ducts. SPLEEN: Normal size. No focal lesions. PANCREAS: No masses. No significant calcifications. No adjacent inflammation or peripancreatic fluid collections. Pancreatic duct not dilated. GALLBLADDER: Small calcified stones. No inflammatory changes to suggest cholecystitis. ADRENAL GLANDS: No significant masses or asymmetry. RIGHT KIDNEY AND URETER: No solid masses. No significant calcifications. No hydronephrosis or hyd roureter. LEFT KIDNEY AND URETER: No solid masses. No significant calcifications. No hydronephrosis or hydr oureter. AORTA AND VESSELS: No aneurysm. No dissection. Renal arteries, SMA, celiac without stenosis. RETROPERITONEUM: No retroperitoneal adenopathy, hemorrhage or masses. BOWEL AND PERITONEAL CAVITY: No masses or inflammatory changes. No free fluid or peritoneal masses. APPENDIX: Normal. PELVIS: No mass. No free fluid. Normal bladder. ABDOMINAL WALL: No masses. No hernias. BONES: No significant or acute findings. OTHER: No other significant finding. IMPRESSION: NO ACUTE FINDING IN THE ABDOMEN OR PELVIS ON CT SCAN WITH IV CONTRAST. TECHNICAL DOCUMENTATION: JOB ID: [id number] [id number] Quality ID # [id number]: Final reports with documentation of one or more dose reduction techniques (e.g., Au tomated exposure control, adjustment of the mA and/or kV according to patient size, use of iterative reconstruction technique) 2010 [employer]- All Rights Reserved Reading location - IP/workstation name: [facility]
--- NOTE | 2017-11-17 23:16 | EKG REPORT ---
SEVERITY:- NORMAL ECG - SINUS RHYTHM : Confirmed by: Juarez Jackson 17-Nov-2017 23:15:53
[2017-11-18] MEDS ORDERED: BENZONATATE 100 MG CAPSULE PO ONE (01:05)
--- NOTE | 2017-11-18 02:19 | RADIOLOGY REPORT (SQ) ---
EXAM DESCRIPTION: U/S ABDOMEN LIMITED W/O DOP CLINICAL HISTORY: RUQ, h/o gallstones, elevated lipase COMPARISON: None. TECHNIQUE: Real-time sonographic images of the right upper abdomen were obtained using a curved multihertz transducer. FINDINGS: Pancreas: The visualized portions of the pancreas are unremarkable. Vascular: The visualized portions of the aorta and IVC are unremarkable. Liver: The liver has normal contour and echogenicity. Hepatopedal flow in the portal vein. The common bile duct measures 0.3 cm. Gallbladder: Normal gallbladder wall thickness. Negative reported sonographic Serra sign. No pericholecystic fluid. Mobile echogenic structures with posterior shadowing compatible with gallstones. Right Kidney: The right kidney measures 11.1 cm in length. No hydronephrosis, solid renal mass, or shadowing calculi. IMPRESSION: 1. Cholelithiasis without other sonographic evidence of acute cholecystitis.
[2017-11-18] MEDS ORDERED: ALBUTEROL SULFATE 0.083% NEB 2.5 MG/3 ML AMPUL NEB ONE (03:11)
[2017-11-18] MEDS ORDERED: DEXTROSE 40% GEL 15 GM TUBE PO PRN ×2 (03:43)
[2017-11-18] MEDS ORDERED: GLUCAGON,HUMAN RECOMB 1 MG INJ SUBCUT PRN (03:43)
[2017-11-18] MEDS ORDERED: ONDANSETRON HCL INJ/PF 4 MG/2 ML SDV IV PRN (03:43)
[2017-11-18] MEDS ORDERED: DEXTROSE 50%-WATER 25 GM/50 ML DISP.SYRIN IV PRN ×2 (03:43)
[2017-11-18] MEDS ORDERED: PREDNISONE 20 MG TABLET PO ONE (04:15)
[2017-11-18] MEDS ORDERED: AZITHROMYCIN INJ 500 MG VIAL IV PRN (04:19)
[2017-11-18] MEDS ORDERED: GUAIFENESIN 600 MG TABLET.SA PO ONE (05:00)
[2017-11-18] MEDS ORDERED: AZITHROMYCIN 500 MG in DEXTROSE 5%-WATER 250 ML IV ONE (05:00)
--- NOTE | 2017-11-18 05:14 | PDOC H&P ---
History of Present Illness Admission Date/PCP: 11/18/17 03:38 History of Present Illness: ERIC JOYNER is a 42 year old male patient presents with chief complaint of diffuse abdominal pain which is constant and dry hacking cough of 4 weeks duration. Initially patient should contact his primary care physician office where he was found to have leukocytosis of 17,000 and they direct him to come to ER. Here his white cell count is 12.7. Patient has underlying ulcerative colitis and he has been on prednisone 60 mg p.o. daily which may explain his leukocytosis. His liver chemistry shows markedly elevated lipase of 3500 but other liver enzymes are within normal limits. Abdominal ultrasound shows cholelithiasis without cholecystitis. Patient denies nausea, vomiting, fever, chills, chest pain or diarrhea. No urinary complaints. No headache, dizziness or blurry vision. Past Medical History Cardiac Medical History: Reports: None Pulmonary Medical History: Reports: None EENT Medical History: Reports: None Neurological Medical History: Reports: None Endocrine Medical History: Reports: None Renal/ Medical History: Reports: None Malignancy Medical History: Reports: None GI Medical History: Reports: Ulcerative Colitis Musculoskeltal Medical History: Reports: None Psychiatric Medical History: Reports: None Social History Smoking Status: Former Smoker Family History Family History: Reviewed & Not Pertinent Parental Family History Reviewed: Yes Children Family History Reviewed: Yes Sibling(s) Family History Reviewed.: Yes Medication/Allergy Home Medications: Benzonatate [Tessalon Perles 100 mg Capsule] 100 mg PO Q8HP PRN #40 capsule 04/04 Cyclobenzaprine HCl [Flexeril 10 mg Tablet] 10 mg PO TIDP PRN #15 tab 04/26/17 Naproxen 500 mg PO BID #60 tablet 04/26/17 Prednisone 40 mg PO DAILY #60 tablet 08/10/17 Hydrocodone/Acetaminophen [[place] 5-325 mg Tablet] 1 tab PO TID 3 Days #12 tablet 08/12/17 Ibuprofen [Motrin 600 Mg Tablet] 600 mg PO TID #15 tablet 08/12/17 Ondansetron [Zofran Odt 4 mg Tablet] 1 - 2 tab PO Q4H PRN #15 tab.rapdis Tamsulosin HCl [Flomax 0.4 mg Cap.sr] 0.4 mg PO DAILY #7 cap.sr.24h 08/12/17 Allergies/Adverse Reactions: hydromorphone [From Dilaudid] Allergy (Verified 11/17/17 17:50) iron Allergy (Verified 11/17/17 17:50) metronidazole Allergy (Verified 11/17/17 17:50) Sulfa (Sulfonamide Antibiotics) Allergy (Verified 11/17/17 17:50) Review of Systems Constitutional: PRESENT: as per HPI Eyes: PRESENT: as per HPI Cardiovascular: PRESENT: as per HPI Respiratory: PRESENT: cough Neurological: PRESENT: as per HPI Psychiatric: PRESENT: as per HPI Physical Exam Vital Signs: Temp Pulse Resp BP Pulse Ox 98.4 F 116 H 23 H 139/104 H 97 11/17/17 17:59 11/17/17 17:59 11/18/17 02:04 11/18/17 02:04 11/18/17 02:04 General appearance: PRESENT: no acute distress Head exam: PRESENT: atraumatic, normocephalic Respiratory exam: PRESENT: clear to auscultation arelis. ABSENT: rales, rhonchi, wheezes Cardiovascular exam: PRESENT: RRR. ABSENT: diastolic murmur, rubs, systolic murmur GI/Abdominal exam: PRESENT: tenderness Neurological exam: PRESENT: alert, awake, oriented to person, oriented to place , oriented to time, oriented to situation, CN II-XII grossly intact. ABSENT: motor sensory deficit Psychiatric exam: PRESENT: appropriate affect, normal mood. ABSENT: homicidal ideation, suicidal ideation Results Impressions: Chest X-Ray 11/17/17 19:02 IMPRESSION: NO ACUTE RADIOGRAPHIC FINDING IN THE CHEST. Abdomen/Pelvis CT 11/17/17 21:46 IMPRESSION: NO ACUTE FINDING IN THE ABDOMEN OR PELVIS ON CT SCAN WITH IV CONTRAST. Abdomen Ultrasound 11/18/17 00:29 IMPRESSION: 1. Cholelithiasis without other sonographic evidence of acute cholecystitis. Assessment & Plan - Diagnosis (1) Acute pancreatitis Qualifiers: Pancreatitis type: unspecified pancreatitis type Is this a current diagnosis for this admission?: Yes Plan: Pain control, aggressive hydration and bowel rest. (2) Ulcerative colitis Is this a current diagnosis for this admission?: Yes Plan: Continue his daily prednisone 60 mg. Patient has upcoming appointment in 2 weeks with his primary building and construction manager. - Time Time Spent: 30 to 50 Minutes - Inpatient Certification Medical Necessity: Need For IV Fluids
[2017-11-18] MEDS: LANSOPRAZOLE 30 MG TAB.RAP.DR PO SCH (06:29)
[2017-11-18] MEDS: NORMAL SALINE 1000 ML 1,000 ML IV PRN ×2 (06:30→17:48)
--- NOTE | 2017-11-18 07:20 | Progress Note ---
Provider Note Provider Note: Chart reviewed. patient currently under care of another GI appears to have uncomplicated pancreatitis no biliary obstruction per labs or CT leukocytosis likely due to current dosage of steroids patient has a history of ulcerative colitis no bloody stools HGB is stable would recommend follow up with primary GI once stable for discharge patient would at that time have IGg4 levels drawn to exclude autoimmune pancreatitis also since UC is associated with PSC, further biliary work up indicated .
--- NOTE | 2017-11-18 09:04 | PDOC CONSULTATION ---
Consultation Consult Date: 11/18/17 Consult reason:: cholelithiasis with elevated lipase History of Present Illness Admission Date/PCP: 11/18/17 03:38 History of Present Illness: ERIC JOYNER is a 42 year old male with known ulcerative colitis and cholelithiasis c/o lower an RUQ abdominal pains . He has pains past 3 weeks then c/o cough. He saw his PMD yesterday who ordered a CBC and sent to ED for elevated WBC. At ED noted elevated lipase and cholelithiasis. Denies fatty food intolerance though he tries to eat non fatty organic foods. Past Medical History Cardiac Medical History: Reports: None Pulmonary Medical History: Reports: None EENT Medical History: Reports: None Neurological Medical History: Reports: None Endocrine Medical History: Reports: None Renal/ Medical History: Reports: None Malignancy Medical History: Reports: None GI Medical History: Reports: Ulcerative Colitis Musculoskeltal Medical History: Reports: None Psychiatric Medical History: Reports: None Social History Smoking Status: Former Smoker Family History Family History: Reviewed & Not Pertinent Parental Family History Reviewed: Yes - mother with DM Children Family History Reviewed: No Sibling(s) Family History Reviewed.: No Medication/Allergy Allergies/Adverse Reactions: hydromorphone [From Dilaudid] Allergy (Verified 11/17/17 17:50) iron Allergy (Verified 11/17/17 17:50) metronidazole Allergy (Verified 11/17/17 17:50) Sulfa (Sulfonamide Antibiotics) Allergy (Verified 11/17/17 17:50) Review of Systems Constitutional: PRESENT: other - no fever or chills but occassionally has cold sweats Eyes: PRESENT: other - no visual or hearing changes Cardiovascular: PRESENT: chest pain Respiratory: PRESENT: cough Gastrointestinal: PRESENT: abdominal pain, diarrhea - 7x/day occassionally with blood Genitourinary: PRESENT: other - no dysuria Neurological: PRESENT: vertigo Hematologic/Lymphatic: PRESENT: other - no easy bruising Physical Exam Vital Signs: Temp Pulse Resp BP Pulse Ox 98.4 F 116 H 20 111/78 99 11/18/17 07:59 11/17/17 17:59 11/18/17 08:00 11/18/17 06:01 11/18/17 06:01 General appearance: PRESENT: mild distress Head exam: PRESENT: atraumatic Eye exam: PRESENT: conjunctiva pink Mouth exam: PRESENT: moist Neck exam: PRESENT: full ROM Respiratory exam: PRESENT: clear to auscultation arelis Cardiovascular exam: PRESENT: RRR Pulses: PRESENT: normal radial pulses Vascular exam: PRESENT: normal capillary refill GI/Abdominal exam: PRESENT: soft, tenderness - Lower abdomen and RUQ Rectal exam: PRESENT: deferred Extremities exam: PRESENT: full ROM Musculoskeletal exam: PRESENT: ambulatory Neurological exam: PRESENT: alert, oriented to person, oriented to place, oriented to time, oriented to situation Psychiatric exam: PRESENT: anxious Skin exam: PRESENT: normal color, warm Results Laboratory Results: 11/18/17 06:43 Lipase 130.3 Impressions: Chest X-Ray 11/17/17 19:02 IMPRESSION: NO ACUTE RADIOGRAPHIC FINDING IN THE CHEST. Abdomen/Pelvis CT 11/17/17 21:46 IMPRESSION: NO ACUTE FINDING IN THE ABDOMEN OR PELVIS ON CT SCAN WITH IV CONTRAST. Abdomen Ultrasound 11/18/17 00:29 IMPRESSION: 1. Cholelithiasis without other sonographic evidence of acute cholecystitis. Assessment & Plan - Diagnosis (1) Cholelithiasis Is this a current diagnosis for this admission?: Yes - Time Time Spent: 30 to 50 Minutes - Plan Summary Plan Summary: Bowel rest OK with clear liquids NPO from midnight Recheck LFTs and Lipase and CBC with diffl in am Not definitely convince that Lipase elevation due to gallstone pancreatitis Will endorse to Dr Fernández tomorrow with ff-up LFTs Dr Carrillo's consult noted.
[2017-11-18] MEDS: ENOXAPARIN SODIUM INJ 40 MG/0.4 ML DISP.SYRIN SUBCUT SCH (12:52)
[2017-11-18] MEDS: BENZONATATE 100 MG CAPSULE PO PRN ×2 (17:43→23:59)
[2017-11-18] MEDS: MORPHINE SULFATE 10 MG/ML INJ IV PRN ×2 (17:45→21:51)
--- NOTE | 2017-11-18 19:35 | Progress Note ---
Provider Note Provider Note: Admitted earlier this morning with acute pancreatits. GI and surgical evaluation appreciated. Has dry cough and problems with allergies. Lou not effective. Chest x-ray negative. Will try Singulair 10mg qHS.
[2017-11-18] MEDS: GUAIFENESIN 600 MG TABLET.SA PO SCH (21:51)
[2017-11-19] MEDS: NORMAL SALINE 1000 ML 1,000 ML IV PRN ×3 (00:03→23:06)
[2017-11-19] MEDS: MORPHINE SULFATE 10 MG/ML INJ IV PRN ×2 (02:04→20:11)
[2017-11-19 04:40] LABS: ABSOLUTE BASOPHILS # (AUTO) 0.1 10^3/uL (0.0-0.2); ABSOLUTE EOSINOPHILS # (AUTO) 0.5 10^3/uL (0.0-0.6); ABSOLUTE LYMPHOCYTES (AUTO) 1.3 10^3/uL (0.5-4.7); ABSOLUTE MONOCYTES (AUTO) 0.9 10^3/uL (0.1-1.4); ABSOLUTE NEUT (AUTO) 7.7 10^3/uL (1.7-8.2); BASOPHILS % (AUTO) 0.6 % (0-2); EOSINOPHILS % (AUTO) 4.5 % (0-6); HEMATOCRIT 34.6 % (37.9-51.0); LYMPHOCYTES % (AUTO) 12.8 % (13-45); MEAN CORPUSCULAR HEMOGLOBIN 30.1 pg (27.0-33.4); MEAN CORPUSCULAR HGB CONC 34.7 g/dL (32.0-36.0); MEAN CORPUSCULAR VOLUME 87 fl (80-97); MONOCYTES % (AUTO) 8.2 % (3-13); PLATELET COUNT 190 10^3/uL (150-450); RED BLOOD COUNT 3.99 10^6/uL (4.35-5.55); RED CELL DISTRIBUTION WIDTH 15.8 % (11.5-14.0); SEGMENTED NEUTROPHILS % (AUTO) 73.9 % (42-78); TOTAL CELLS COUNTED % (AUTO) 100 %; WHITE BLOOD COUNT 10.4 10^3/uL (4.0-10.5)
[2017-11-19 04:58] LABS: ALANINE AMINOTRANSFERASE 34 U/L (21-72); ALBUMIN 3.4 g/dL (3.5-5.0); ALKALINE PHOSPHATASE 42 U/L (38-126); ANION GAP 12 (5-19); ASPARTATE AMINO TRANSFERASE 14 U/L (17-59); BILIRUBIN,DIRECT 0.2 mg/dL (0.0-0.4); BILIRUBIN,TOTAL 1.4 mg/dL (0.2-1.3); BLOOD UREA NITROGEN 11 mg/dL (7-20); CALCIUM 8.5 mg/dL (8.4-10.2); CARBON DIOXIDE 25 mmol/L (22-30); CHLORIDE 105 mmol/L (98-107); GLUCOSE 74 mg/dL (75-110); POTASSIUM 3.8 mmol/L (3.6-5.0); SODIUM 141.5 mmol/L (137-145); TOTAL PROTEIN 5.7 g/dL (6.3-8.2)
[2017-11-19] MEDS: LANSOPRAZOLE 30 MG TAB.RAP.DR PO SCH (06:37)
[2017-11-19] MEDS: GUAIFENESIN 600 MG TABLET.SA PO SCH ×2 (09:11→21:40)
[2017-11-19] MEDS: PREDNISONE 20 MG TABLET PO SCH (09:12)
[2017-11-19] MEDS: ENOXAPARIN SODIUM INJ 40 MG/0.4 ML DISP.SYRIN SUBCUT SCH (09:13)
--- NOTE | 2017-11-19 09:49 | PDOC PROGRESS REPORT ---
Subjective Progress Note for:: 11/19/17 Subjective:: This is a 42-year-old male with complaints of lower abdominal pain and cough. Patient does report a long history of ulcerative colitis, and steroid dependence because of it. Patient denies a history of fatty food intolerance. The patient reports frequent diarrhea and hematochezia. Patient denies any chest pain, shortness of breath. He does report fevers, chills, orthostasis, dizziness, fatigue, chronic back pain, flank pain. Reason For Visit: ACUTE PANCREATITIS Physical Exam Vital Signs: Temp Pulse Resp BP Pulse Ox 98.1 F 70 12 130/85 H 97 11/19/17 07:49 11/19/17 07:49 11/19/17 07:49 11/19/17 07:49 11/19/17 07:49 Intake & Output 11/18/17 11/19/17 11/20/17 06:59 06:59 06:59 Intake Total 2776 Output Total 975 Balance 1801 Weight 88 kg General appearance: PRESENT: no acute distress Head exam: PRESENT: atraumatic, normocephalic Eye exam: PRESENT: EOMI, PERRLA. ABSENT: conjunctival injection, scleral icterus Mouth exam: PRESENT: moist, neck supple Teeth exam: ABSENT: dental caries Neck exam: ABSENT: lymphadenopathy, meningismus, tenderness, thyromegaly, tracheal deviation Respiratory exam: PRESENT: clear to auscultation arelis. ABSENT: chest wall tenderness Cardiovascular exam: PRESENT: RRR GI/Abdominal exam: PRESENT: distended - Mild, soft, tenderness - Minimal bilateral lower quadrant. ABSENT: guarding, hernia, Serra's sign Neurological exam: PRESENT: alert, oriented to person, oriented to place, oriented to time, CN II-XII grossly intact Psychiatric exam: ABSENT: agitated, anxious Skin exam: ABSENT: cyanosis, erythema, jaundice Results Laboratory Results: 11/19/17 03:44 11/19/17 03:44 11/19/17 11/19/17 03:44 03:44 WBC 10.4 RBC 3.99 L Hgb 12.0 L D Hct 34.6 L MCV 87 MCH 30.1 MCHC 34.7 RDW 15.8 H Plt Count 190 Seg Neutrophils % 73.9 Lymphocytes % 12.8 L Monocytes % 8.2 Eosinophils % 4.5 Basophils % 0.6 Absolute Neutrophils 7.7 Absolute Lymphocytes 1.3 Absolute Monocytes 0.9 Absolute Eosinophils 0.5 Absolute Basophils 0.1 Sodium 141.5 Potassium 3.8 Chloride 105 Carbon Dioxide 25 Anion Gap 12 BUN 11 Creatinine 0.86 Est GFR ( Amer) > 60 Est GFR (Non-Af Amer) > 60 Glucose 74 L Calcium 8.5 Total Bilirubin 1.4 H AST 14 L ALT 34 Alkaline Phosphatase 42 Total Protein 5.7 L Albumin 3.4 L Impressions: Chest X-Ray 11/17/17 19:02 IMPRESSION: NO ACUTE RADIOGRAPHIC FINDING IN THE CHEST. Abdomen/Pelvis CT 11/17/17 21:46 IMPRESSION: NO ACUTE FINDING IN THE ABDOMEN OR PELVIS ON CT SCAN WITH IV CONTRAST. Abdomen Ultrasound 11/18/17 00:29 IMPRESSION: 1. Cholelithiasis without other sonographic evidence of acute cholecystitis. Assessment & Plan - Plan Summary Plan Summary: This is a patient with chronic ulcerative colitis and steroid dependence. Initially he was found to have an elevated lipase, but his repeat was normal. Clinically speaking, the patient does not exhibit signs of pancreatitis. I will recheck his lipase today to confirm that it is within the normal range. His LFTs are unremarkable. I have discussed the patient's long-term care, including treatment for ulcerative colitis. I have relayed that the patient may benefit from colectomy if his symptoms cannot be controlled with medications. Currently, the patient is not interested in surgical intervention. I will see the patient again on an as-needed basis. Please re- notify with any questions or concerns.
[2017-11-19] MEDS ORDERED: AZITHROMYCIN 500 MG in DEXTROSE 5%-WATER 250 ML IV SCH (10:00)
--- NOTE | 2017-11-19 14:59 | PDOC PROGRESS REPORT ---
Subjective Progress Note for:: 11/19/17 Subjective:: Feeling a little better today. Continues to endorse abdominal pain however this is chronic UC-related pain. Has been NPO and eager to advance diet. Denies fevers, chills, SOB, nausea or vomiting. Reason For Visit: ACUTE PANCREATITIS Physical Exam Vital Signs: Temp Pulse Resp BP Pulse Ox 98.3 F 85 20 143/94 H 99 11/19/17 11:30 11/19/17 11:30 11/19/17 11:30 11/19/17 11:30 11/19/17 11:30 Intake & Output 11/18/17 11/19/17 11/20/17 06:59 06:59 06:59 Intake Total 2776 Output Total 975 Balance 1801 Weight 88 kg General appearance: PRESENT: no acute distress, well-developed, well-nourished Mouth exam: PRESENT: moist Cardiovascular exam: PRESENT: RRR, +S1, +S2 GI/Abdominal exam: PRESENT: normal bowel sounds, soft, tenderness - bilateral suprapubic tenderness Neurological exam: PRESENT: alert, awake, CN II-XII grossly intact Psychiatric exam: PRESENT: anxious Results Laboratory Results: 11/19/17 03:44 11/19/17 03:44 11/19/17 11/19/17 11/19/17 03:44 03:44 03:44 WBC 10.4 RBC 3.99 L Hgb 12.0 L D Hct 34.6 L MCV 87 MCH 30.1 MCHC 34.7 RDW 15.8 H Plt Count 190 Seg Neutrophils % 73.9 Lymphocytes % 12.8 L Monocytes % 8.2 Eosinophils % 4.5 Basophils % 0.6 Absolute Neutrophils 7.7 Absolute Lymphocytes 1.3 Absolute Monocytes 0.9 Absolute Eosinophils 0.5 Absolute Basophils 0.1 Sodium 141.5 Potassium 3.8 Chloride 105 Carbon Dioxide 25 Anion Gap 12 BUN 11 Creatinine 0.86 Est GFR ( Amer) > 60 Est GFR (Non-Af Amer) > 60 Glucose 74 L Calcium 8.5 Total Bilirubin 1.4 H AST 14 L ALT 34 Alkaline Phosphatase 42 Total Protein 5.7 L Albumin 3.4 L Lipase 81.1 Impressions: Chest X-Ray 11/17/17 19:02 IMPRESSION: NO ACUTE RADIOGRAPHIC FINDING IN THE CHEST. Abdomen/Pelvis CT 11/17/17 21:46 IMPRESSION: NO ACUTE FINDING IN THE ABDOMEN OR PELVIS ON CT SCAN WITH IV CONTRAST. Abdomen Ultrasound 11/18/17 00:29 IMPRESSION: 1. Cholelithiasis without other sonographic evidence of acute cholecystitis. Assessment & Plan - Diagnosis (1) Acute pancreatitis Qualifiers: Pancreatitis type: unspecified pancreatitis type Is this a current diagnosis for this admission?: Yes Plan: Pt has known hx of steroid dependent UC. He presented with abdominal pain and elevated lipase levels. He was placed on IVF, NPO status, and pain control. Lipase AM rapidly normalized, which makes diagnosis of acute pancreatitis more questionable. Additionally there was no CT related finding concerning for stranding or other pancreatic pathology. Additionally he has no risk factor for pancreatitis other than gallstones. He has been seen by general surgery who agrees with medical management. - Advanced diet for clear liquid for lunch, can transition to full liquid at dinner time - COntinue IVF, anti-emetics, and pain control PRN (2) Cholelithiasis Is this a current diagnosis for this admission?: Yes Plan: Stones noted on abdominal ultrasound. Would not be a good candidate for cholecystectomy given high steroid requirement daily and likelihood of poor wound healing. Would monitor for now (3) Ulcerative colitis Is this a current diagnosis for this admission?: Yes Plan: Long standing history of UC. Followed by GI. Plan to start steroid sparing agent soon, either Remicaid or alternative if can be covered by insurance. This is a chronic issue and will defer to his GI physician for further management. - Time Time Spent with patient: Less than 15 minutes Medications reviewed and adjusted accordingly: Yes Anticipated discharge: Home Within: within 24 hours
[2017-11-19] MEDS: BENZONATATE 100 MG CAPSULE PO PRN ×2 (15:44→21:40)
[2017-11-20 05:39] LABS: ABSOLUTE EOSINOPHILS # (AUTO) 0.5 10^3/uL (0.0-0.6); ABSOLUTE LYMPHOCYTES (AUTO) 1.2 10^3/uL (0.5-4.7); ABSOLUTE MONOCYTES (AUTO) 0.8 10^3/uL (0.1-1.4); ABSOLUTE NEUT (AUTO) 7.8 10^3/uL (1.7-8.2); BASOPHILS % (AUTO) 0.4 % (0-2); EOSINOPHILS % (AUTO) 4.4 % (0-6); HEMATOCRIT 36.2 % (37.9-51.0); HEMOGLOBIN 12.3 g/dL (13.5-17.0); MEAN CORPUSCULAR HEMOGLOBIN 29.7 pg (27.0-33.4); MEAN CORPUSCULAR HGB CONC 33.9 g/dL (32.0-36.0); MEAN CORPUSCULAR VOLUME 88 fl (80-97); MONOCYTES % (AUTO) 7.9 % (3-13); PLATELET COUNT 190 10^3/uL (150-450); RED BLOOD COUNT 4.13 10^6/uL (4.35-5.55); RED CELL DISTRIBUTION WIDTH 15.5 % (11.5-14.0); SEGMENTED NEUTROPHILS % (AUTO) 75.3 % (42-78); TOTAL CELLS COUNTED % (AUTO) 100 %; WHITE BLOOD COUNT 10.4 10^3/uL (4.0-10.5)
[2017-11-20] MEDS: LANSOPRAZOLE 30 MG TAB.RAP.DR PO SCH (05:53)
[2017-11-20] MEDS: NORMAL SALINE 1000 ML 1,000 ML IV PRN (05:55)
[2017-11-20] MEDS: MORPHINE SULFATE 10 MG/ML INJ IV PRN (08:55)
[2017-11-20] MEDS: ENOXAPARIN SODIUM INJ 40 MG/0.4 ML DISP.SYRIN SUBCUT SCH (09:31)
[2017-11-20] MEDS: BENZONATATE 100 MG CAPSULE PO PRN ×2 (09:31→17:33)
[2017-11-20] MEDS: PREDNISONE 20 MG TABLET PO SCH (09:31)
[2017-11-20] MEDS: GUAIFENESIN 600 MG TABLET.SA PO SCH (09:31)
--- NOTE | 2017-11-20 11:15 | PDOC DISCHARGE SUMMARY ---
General - Admit/Disc Date/PCP Admission Date/Primary Care Provider: 11/18/17 03:38 Discharge Date: 11/20/17 - Discharge Diagnosis (1) Acute pancreatitis Is this a current diagnosis for this admission?: Yes Summary: Admitting diagnosis. Pt has known hx of steroid dependent UC. He presented with abdominal pain and elevated lipase levels. He was placed on IVF, NPO status, and pain control. Lipase on 5/4 AM rapidly normalized, which makes diagnosis of acute pancreatitis more questionable. Additionally there was no CT related finding concerning for stranding or other pancreatic pathology. Additionally he has no risk factor for pancreatitis other than gallstones. He has been seen by general surgery who agrees with medical management. Diet was advanced and tolerated well. Patient will be discharged to home in stable condition. (2) Cholelithiasis Is this a current diagnosis for this admission?: Yes Summary: Stones noted on abdominal ultrasound. Would not be a good candidate for cholecystectomy given high steroid requirement daily and likelihood of poor wound healing. Would monitor for now (3) Ulcerative colitis Is this a current diagnosis for this admission?: Yes Summary: Long standing history of UC. Followed by GI. Plan to start steroid sparing agent soon, either Remicaid or alternative if can be covered by insurance. This is a chronic issue and will defer to his GI physician for further management. (4) Cough Is this a current diagnosis for this admission?: Yes Summary: Dry cough. No fevers or chills. No active signs of PNA or other intra-thoracic pathology. Continue OTC mucinex and tessalon perles at home (5) Insomnia Is this a current diagnosis for this admission?: Yes Summary: Patient states that this is a long standing problem and he requested a script. I have provided him a script for Trazadone 50mg qhs. - Additional Information Resuscitation Status: Full Code Discharge Diet: As Tolerated Discharge Activity: Activity As Tolerated Prescriptions: Trazodone HCl [Desyrel 50 mg Tablet] 50 mg PO QHS #30 tablet Home Medications: Ascorbic Acid [Vitamin C] 1,000 mg PO DAILY 11/18/17 Benzonatate [Tessalon Perles 100 mg Capsule] 200 mg PO TIDP PRN 11/18/17 Biotin [Chencho Biotin] 10,000 mcg PO DAILY 11/18/17 Boswellia Extract 2 tab PO DAILYP PRN 11/18/17 C/Sourcherry/Celery/Grape Seed [Tart Mai Capsule] 2 cap PO DAILY 11/18/17 Cholecalciferol (Vitamin D3) [Vitamin D3 5000 unit Capsule] 5,000 unit PO DAILY 11/18/17 Chrm/Vineg/Bit-Orang Peel/Gr T [Apple Cider Vinegar Plus Tablet] 2 tab PO DAILY 11/18/17 Cyclobenzaprine HCl [Flexeril 10 mg Tablet] 10 mg PO Q8HP PRN 11/18/17 Famotidine [Pepcid 20 mg Tablet] 20 mg PO BIDP PRN 11/18/17 Flaxseed Oil [Flaxseed] 1,000 mg PO DAILY 11/18/17 Walter Seal/Echinacea Purpurea [Echinacea & Goldenseal Cap] 1 cap PO DAILY 11/18 Marshmallow Extract 1 cap PO DAILY 11/18/17 Prednisone [Deltasone 20 mg Tablet] 60 mg PO DAILY 11/18/17 Slippery Elm 12 cap PO DAILY 11/18/17 Turmeric/Turmeric Root Extract [Turmeric 500 mg Capsule] 1 cap PO DAILY Vitamin A 25,000 unit PO DAILY 11/18/17 Trazodone HCl [Desyrel 50 mg Tablet] 50 mg PO QHS #30 tablet 11/20/17 History of Present Illness History of Present Illness: ERIC JOYNER is a 42 year old male who presents with chief complaint of diffuse abdominal pain which is constant and dry hacking cough of 4 weeks duration. Initially patient should contact his primary care physician office where he was found to have leukocytosis of 17,000 and they direct him to come to ER. Here his white cell count is 12.7. Patient has underlying ulcerative colitis and he has been on prednisone 60 mg p.o. daily which may explain his leukocytosis. His liver chemistry shows markedly elevated lipase of 3500 but other liver enzymes are within normal limits. Abdominal ultrasound shows cholelithiasis without cholecystitis. Patient denies nausea, vomiting, fever, chills, chest pain or diarrhea. No urinary complaints. No headache, dizziness or blurry vision. Physical Exam Vital Signs: Temp Pulse Resp BP Pulse Ox 98.4 F 71 16 128/92 H 100 11/20/17 07:56 11/20/17 07:56 11/20/17 07:56 11/20/17 07:56 11/20/17 07:56 Intake & Output 11/19/17 11/20/17 11/21/17 06:59 06:59 06:59 Intake Total 2776 4261 Output Total 975 550 Balance 1801 3711 Weight 88 kg 89 kg General appearance: PRESENT: no acute distress, cooperative, well-developed, well-nourished Mouth exam: PRESENT: moist Respiratory exam: PRESENT: unlabored. ABSENT: tachypnea, wheezes Cardiovascular exam: PRESENT: +S1, +S2. ABSENT: tachycardia GI/Abdominal exam: PRESENT: soft. ABSENT: tenderness Extremities exam: PRESENT: full ROM Neurological exam: PRESENT: alert, awake, oriented to time, oriented to situation, CN II-XII grossly intact Psychiatric exam: PRESENT: appropriate affect Results Laboratory Results: 11/20/17 04:30 11/19/17 03:44 11/20/17 04:30 WBC 10.4 RBC 4.13 L Hgb 12.3 L Hct 36.2 L MCV 88 MCH 29.7 MCHC 33.9 RDW 15.5 H Plt Count 190 Seg Neutrophils % 75.3 Lymphocytes % 12.0 L Monocytes % 7.9 Eosinophils % 4.4 Basophils % 0.4 Absolute Neutrophils 7.8 Absolute Lymphocytes 1.2 Absolute Monocytes 0.8 Absolute Eosinophils 0.5 Absolute Basophils 0.0 Impressions: Chest X-Ray 11/17/17 19:02 IMPRESSION: NO ACUTE RADIOGRAPHIC FINDING IN THE CHEST. Abdomen/Pelvis CT 11/17/17 21:46 IMPRESSION: NO ACUTE FINDING IN THE ABDOMEN OR PELVIS ON CT SCAN WITH IV CONTRAST. Abdomen Ultrasound 11/18/17 00:29 IMPRESSION: 1. Cholelithiasis without other sonographic evidence of acute cholecystitis. Qualifiers - * PATIENT BEING DISCHARGED WITH ANY OF THE FOLLOWING DIAGNOSIS: No Plan Time Spent: Less than 30 Minutes
[2017-11-20] MEDS ORDERED: MECLIZINE HCL 12.5 MG TABLET PO ONE (13:15)
[2017-11-20 19:57] VITALS: BP 130/85
== END 2017-11-20 20:39 | disposition home or self-care (01) | DRG 439 ==
LOC: ER 17:49 → EH 11-18 03:38 → 3N 11-18 09:37
PROVIDERS: ADMIT Internal Medicine; ATTEND Internal Medicine
DX: K85.90 Acute pancreatitis without necrosis or infection, unspecified (principal); K51.90 Ulcerative colitis, unspecified, without complications; K80.20 Calculus of gallbladder without cholecystitis without obstruction; G47.00 Insomnia, unspecified; Z79.52 Long term (current) use of systemic steroids; Z87.891 Personal history of nicotine dependence
CPT/HCPCS: 36415; 71046; 74177; 76705; 80053; 80307; 81001; 83690; 85025; 85652; 87040; 87077; 87186; 93005; 93010; 94640; 96360; 99285; J0456; J2270; J3490; J7030; J7060; J7512

== ENCOUNTER 2018-02-07 22:54 | Emergency (ER) | payer SELFPAY ==
[2018-02-08] MEDS ORDERED: ASPIRIN 81 MG TABLET, CHEWABLE PO ONE (00:24)
--- NOTE | 2018-02-08 00:29 | ER Document Report ---
ED Medical Screen (RME) - General Chief Complaint: Anxiety Stated Complaint: ANXIETY Time Seen by Provider: 02/08/18 00:23 Mode of Arrival: Wheelchair Information source: Patient Notes: Patient is a 42-year-old male who presents with chief complaint of anxiety attack and chest pain. Patient reports that he was moving some furniture tonight when he broke out in a sweat, had difficulty breathing, nausea and felt sudden onset chest pain under his bilateral breasts. Patient reports that he is feeling much better now. Patient was brought in via EMS who reports that his initial oxygen saturation was 98 200% however he was hyperventilating. Exam: Lung sounds clear to auscultation bilaterally, patient's breaths even and unlabored. Reproducible chest pain/epigastric pain under patient's bilateral breasts. I have greeted and performed a rapid initial assessment of this patient. A comprehensive ED assessment and evaluation of the patient, analysis of test results and completion of the medical decision making process will be conducted by additional ED providers. Dictation of this chart was performed using voice recognition software; therefore, there may be some unintended grammatical errors. TRAVEL OUTSIDE OF THE [place] IN LAST 30 DAYS: No - Related Data Allergies/Adverse Reactions: hydromorphone [From Dilaudid] Allergy (Verified 11/17/17 17:50) iron Allergy (Verified 11/17/17 17:50) metronidazole Allergy (Verified 11/17/17 17:50) Sulfa (Sulfonamide Antibiotics) Allergy (Verified 11/17/17 17:50) Past Medical History Renal/ Medical History: Denies: Hx Peritoneal Dialysis GI Medical History: Reports: Hx Ulcerative Colitis Doctor's Discharge - Discharge Instructions: Anxiety ([facility])
[2018-02-08 01:14] LABS: HEMATOCRIT 42.7 % (37.9-51.0); HEMOGLOBIN 14.6 g/dL (13.5-17.0); MEAN CORPUSCULAR HEMOGLOBIN 29.8 pg (27.0-33.4); MEAN CORPUSCULAR HGB CONC 34.1 g/dL (32.0-36.0); MEAN CORPUSCULAR VOLUME 87 fl (80-97); PLATELET COUNT 322 10^3/uL (150-450); RED BLOOD COUNT 4.88 10^6/uL (4.35-5.55); RED CELL DISTRIBUTION WIDTH 16.9 % (11.5-14.0); WHITE BLOOD COUNT 21.2 10^3/uL (4.0-10.5)
[2018-02-08 01:29] LABS: ABSOLUTE LYMPHOCYTES# (MANUAL) 2.3 10^3/uL (0.5-4.7); ABSOLUTE MONOCYTES # (MANUAL) 2.1 10^3/uL (0.1-1.4); ABSOLUTE NEUTROPHILS# (MANUAL) 16.7 10^3/uL (1.7-8.2); BASOPHILS % (MANUAL) 0 % (0-2); EOSINOPHILS % (MANUAL) 0 % (0-6); LYMPHOCYTES % (MANUAL) 11 % (13-45); MONOCYTES % (MANUAL) 10 % (3-13); SEGMENTED NEUTROPHILS % (MAN) 79 % (42-78); TOTAL CELLS COUNTED 100
[2018-02-08 01:31] LABS: ANISOCYTOSIS 1+; OVALOCYTES SLIGHT; PLATELET COMMENT ADEQUATE; POIKILOCYTOSIS SLIGHT; POLYCHROMASIA SLIGHT; TOXIC GRANULATION 1+
[2018-02-08 01:41] LABS: ALANINE AMINOTRANSFERASE 42 U/L (21-72); ALBUMIN 4.9 g/dL (3.5-5.0); ALKALINE PHOSPHATASE 55 U/L (38-126); ANION GAP 16 (5-19); ASPARTATE AMINO TRANSFERASE 26 U/L (17-59); BILIRUBIN,DIRECT 0.3 mg/dL (0.0-0.4); BILIRUBIN,TOTAL 1.6 mg/dL (0.2-1.3); BLOOD UREA NITROGEN 19 mg/dL (7-20); CALCIUM 9.8 mg/dL (8.4-10.2); CARBON DIOXIDE 23 mmol/L (22-30); CHLORIDE 107 mmol/L (98-107); CREATINE KINASE 77 U/L (55-170); GLUCOSE 94 mg/dL (75-110); POTASSIUM 3.8 mmol/L (3.6-5.0); SODIUM 145.7 mmol/L (137-145)
[2018-02-08 01:51] LABS: CREATINE KINASE MB 0.78 ng/mL (<4.55)
[2018-02-08 02:04] LABS: TROPONIN I < 0.012 ng/mL
--- NOTE | 2018-02-08 02:17 | RADIOLOGY REPORT (SQ) ---
EXAM DESCRIPTION: XR CHEST 1 VIEW COMPLETED DATE/TME: 02/08/2018 00:23 CLINICAL HISTORY: chest pain COMPARISON: 11/17/2017 FINDINGS: Single frontal view of the chest. Atherosclerotic calcification and tortuosity of the thoracic aorta. Leads overlie the chest. Heart is not enlarged. Low lung volumes. No consolidation, pneumothorax, or pleural effusion. No displaced rib fractures identified. Upper abdominal soft tissues are unremarkable. IMPRESSION: 1. No acute pulmonary process identified.
[2018-02-08] MEDS ORDERED: LIDOCAINE 2% INJ-PF (20 MG/ML) 10 ML AMPUL NEB ONE (02:42)
--- NOTE | 2018-02-08 03:38 | ER Document Report ---
ED General - General Chief Complaint: Anxiety Stated Complaint: ANXIETY Time Seen by Provider: 02/08/18 00:23 Mode of Arrival: Wheelchair Notes: Patient is a 42-year-old male with a past medical history of ulcerative colitis currently on chronic steroids, hypertension, who presents with an episode of left-sided chest pain and difficulty breathing. He states that he was apparently moving and is apparently not supposed to lift anything due to his chronic back issues. He states that he developed a stabbing left-sided chest pain and began to feel he could not breathe. Paramedics note that he was apparently rolling around on the ground screen and that he could not breathe. They note that he appear to be having a panic attack. The patient states that he believes he was quite anxious during the event but denies a history of anxiety in the past. Denies any history of similar symptoms in the past. He states that his symptoms have dramatically improved since arriving in the emergency department. Nothing triggered or worsened his symptoms at the time that he can recall. He denies any ongoing chest discomfort. He does note that he has had a chronic cough for the past several months and recently received a dose of Solu-Medrol. TRAVEL OUTSIDE OF THE [place] IN LAST 30 DAYS: No - Related Data Allergies/Adverse Reactions: hydromorphone [From Dilaudid] Allergy (Verified 11/17/17 17:50) iron Allergy (Verified 11/17/17 17:50) metronidazole Allergy (Verified 11/17/17 17:50) Sulfa (Sulfonamide Antibiotics) Allergy (Verified 11/17/17 17:50) Past Medical History - General Information source: Patient - Social History Smoking Status: Never Smoker Frequency of alcohol use: None Drug Abuse: None Lives with: Alone Family History: Reviewed & Not Pertinent Patient has suicidal ideation: No Patient has homicidal ideation: No Renal/ Medical History: Denies: Hx Peritoneal Dialysis GI Medical History: Reports: Hx Ulcerative Colitis Review of Systems - Review of Systems Notes: Constitutional: Negative for fever. HENT: Negative for sore throat. Eyes: Negative for visual changes. Cardiovascular: Positive for chest pain. Respiratory: Positive for shortness of breath. Gastrointestinal: Negative for abdominal pain, vomiting or diarrhea. Genitourinary: Negative for dysuria. Musculoskeletal: Negative for back pain. Skin: Negative for rash. Neurological: Negative for headaches, weakness or numbness. 10 point ROS negative except as marked above and in HPI. Physical Exam - Vital signs Vitals: Resp Pulse Ox 27 H 95 02/08/18 01:29 02/08/18 01:29 Interpretation: Normal Notes: PHYSICAL EXAMINATION: GENERAL: Well-appearing, well-nourished and in no acute distress. HEAD: Atraumatic, normocephalic. EYES: Pupils equal round and reactive to light, extraocular movements intact, sclera anicteric, conjunctiva are normal. ENT: nares patent, oropharynx clear without exudates. Moist mucous membranes. NECK: Normal range of motion, supple without lymphadenopathy LUNGS: Breath sounds clear to auscultation bilaterally and equal. No wheezes rales or rhonchi. HEART: Regular rate and rhythm without murmurs ABDOMEN: Soft, nontender, normoactive bowel sounds. No guarding, no rebound. No masses appreciated. Intermittently coughing. EXTREMITIES: Normal range of motion, no pitting or edema. No cyanosis. NEUROLOGICAL: No focal neurological deficits. Moves all extremities spontaneously and on command. PSYCH: Moderately anxious, loquacious SKIN: Warm, Dry, normal turgor, no rashes or lesions noted. Course - Re-evaluation Re-evalutation: 02/08/18 03:37 Presentation of chest pain in an otherwise well appearing patient. Low clinical suspicion for ACS given clinical history, exam, EKG without ST elevations or depressions, and negative initial troponin. HEART score less than or equal to 3. PE also seems unlikely given clinical history, absence of tachycardia or dyspnea. Patient is PERC criteria negative. CXR without evidence of pneumothorax or pneumonia. No widened mediastinum. Aortic dissection also seems unlikely given history, symmetric pulses, CXR, and vitals. Delta troponin has been obtained and as long as this is normal patient will be discharged home. He was given a lidocaine nebulizer for his chronic cough. At this time will discharge with return precautions and follow-up recommendations. Verbal discharge instructions given a the bedside and opportunity for questions given. Medication warnings reviewed. Patient is in agreement with this plan and has verbalized understanding of return precautions and the need for primary care follow-up in the next 24-72 hours. - Vital Signs Vital signs: Temp Pulse Resp BP Pulse Ox 20 113/91 H 97 02/08/18 02:01 02/08/18 02:01 02/08/18 02:01 - Laboratory Result Diagrams: 02/08/18 00:45 02/08/18 00:45 Laboratory results interpreted by me: 02/08/18 02/08/18 00:45 00:45 WBC 21.2 H RDW 16.9 H Seg Neuts % (Manual) 79 H Lymphocytes % (Manual) 11 L Abs Neuts (Manual) 16.7 H Abs Monocytes (Manual) 2.1 H Sodium 145.7 H Total Bilirubin 1.6 H - Diagnostic Test Radiology reviewed: Image reviewed, Reports reviewed Radiology results interpreted by me: 02/08/18 03:37 Chest x-ray: No acute infiltrate or pneumothorax - EKG Interpretation by Me Additional EKG results interpreted by me: 02/08/18 03:38 Sinus rhythm. Rate 92. No ST elevations or depressions. QTC is 446. Discharge - Discharge Clinical Impression: Chest discomfort, Shortness of breath Condition: Good Disposition: HOME, SELF-CARE Instructions: Anxiety ([facility]) Additional Instructions: You were seen today for chest pain. The exact cause of your pain is unclear. However, based on your cardiac enzyme testing, chest x-ray, and EKG it does not appear that it is from an immediately life-threatening cause at this time. Although your testing here is normal is critical that you follow-up with your primary care physician for continued evaluation of this chest pain and possible stress testing. I recommended you see your physician within the next 24-48 hours to be evaluated for consideration of a stress test. Please return to emergency department immediately if you have worsening of your chest pain, shortness of breath, vomiting, become unable to exert yourself due to pain or difficulty breathing, you pass out, or have any pain that radiates into your arms, jaw, or back. Please also return if you have any additional symptoms that are concerning to you.
[2018-02-08 04:46] VITALS: BP 135/92
--- NOTE | 2018-02-08 07:58 | EKG REPORT ---
SEVERITY:- ABNORMAL ECG - SINUS RHYTHM LEFT VENTRICULAR HYPERTROPHY BORDERLINE T ABNORMALITIES, INFERIOR LEADS : Confirmed by: Christie Parra MD 08-Feb-2018 07:58:38
== END 2018-02-08 05:06 | disposition home or self-care (01) ==
LOC: ER 22:54
DX: R07.9 Chest pain, unspecified (principal); R06.02 Shortness of breath; F41.9 Anxiety disorder, unspecified; R05 Cough; I10 Essential (primary) hypertension; K51.90 Ulcerative colitis, unspecified, without complications; Z79.52 Long term (current) use of systemic steroids; Z88.5 Allergy status to narcotic agent; Z88.2 Allergy status to sulfonamides; Z88.8 Allergy status to other drugs, medicaments and biological substances
CPT/HCPCS: 93005; 99284; 36415; 82553; 82550; 85025; 80053; 84484; 71045; 93010; J3490

== ENCOUNTER → 2020-01-15 | Outpatient (CLI) | payer MEDICAID ==
--- NOTE | 2020-01-15 14:37 | RADIOLOGY REPORT (SQ) ---
EXAM DESCRIPTION: L SPINE 2 VIEWS IMAGES COMPLETED DATE/TIME: 01/15/2020 2:02 pm REASON FOR STUDY: M54.5 LOW BACK PAIN M54.5 LOW BACK PAIN COMPARISON: CT dated 11/17/2017 NUMBER OF VIEWS: Two views. TECHNIQUE: AP and lateral radiographic images acquired of the lumbar spine. LIMITATIONS: None. FINDINGS: MINERALIZATION: Osteopenia. SEGMENTATION: Normal. No transitional anatomy. ALIGNMENT: Mild scoliosis with concavity toward the right. VERTEBRAE: There is mild compression of T11 which is chronic. There is slight compression of T12 wit h approximately 15 to 20% loss of height. There is mild compression along the superior endplate of L 1. There is mild wedging of L2 along the inferior endplate and superior endplate. There is approxim ately 10% loss of height. There is bowing of the superior endplate of L4. DISCS: Disc space narrowing at L4-L5. POSTERIOR ELEMENTS: Pedicles and facets are intact. No pars defect or posterior arch defects. HARDWARE: None in the spine. PARASPINAL SOFT TISSUES: Normal. PELVIS: Intact as visualized. No fractures or worrisome bone lesions. SI joints intact. OTHER: No other significant finding. IMPRESSION: Osteopenia with multiple mild wedge deformities. T11 is stable from 11/17/2017. Changes at T12, L1, L2 and L4 are new. Recommend MRI for further evaluation. No obvious retropulsion on con ventional radiographs. TECHNICAL DOCUMENTATION: JOB ID: [id number] 2010 [employer]- All Rights Reserved Reading location - IP/workstation name: [email or web address]
--- NOTE | 2020-01-15 14:37 | RADIOLOGY REPORT (SQ) ---
EXAM DESCRIPTION: T SPINE AP/LAT IMAGES COMPLETED DATE/TIME: 01/15/2020 2:02 pm REASON FOR STUDY: M54.5 LOW BACK PAIN M54.5 LOW BACK PAIN COMPARISON: None. NUMBER OF VIEWS: Two views. TECHNIQUE: AP and lateral radiographic images acquired of the thoracic spine. LIMITATIONS: None. FINDINGS: MINERALIZATION: Osteopenia. ALIGNMENT: Normal. No scoliosis. VERTEBRAE: Chronic T11 compression deformity. A age indeterminate compression deformity at T12. Mil d wedging along the superior endplate of T7. DISCS: No significant loss of height or significant narrowing. No large osteophytes. HARDWARE: None in the spine. MEDIASTINUM AND SOFT TISSUES: Normal heart size and aortic contour. No soft tissue abnormality. VISUALIZED LUNG GAINES: Clear. OTHER: No other significant finding. IMPRESSION: Several mild wedge deformities as described. T11 is chronic based on prior CT abdomen p lottie. Changes at T12 and T7 are age indeterminate. TECHNICAL DOCUMENTATION: JOB ID: [id number] 2010 [employer]- All Rights Reserved Reading location - IP/workstation name: [email or web address]
== END ==
LOC: RAD 13:41
PROVIDERS: ATTEND Physician Assistant Medical
DX: M54.5 Low back pain (principal); M85.88 Other specified disorders of bone density and structure, other site
CPT/HCPCS: 72070; 72100

== ENCOUNTER → 2020-02-05 | Outpatient (CLI) | payer MEDICAID ==
--- NOTE | 2020-02-05 15:00 | RADIOLOGY REPORT (SQ) ---
EXAM DESCRIPTION: MRI LUMBAR SPINE WITHOUT IMAGES COMPLETED DATE/TIME: 02/05/2020 1:56 pm REASON FOR STUDY: M48.56XA COLLAPSED VERTEBRA, NEC, LUMBAR REGION, INIT M48.56XA COLLAPSED VERTEBRA , NEC, LUMBAR REGION, INIT COMPARISON: None. TECHNIQUE: Sagittal and Axial imaging includes T1, T2, STIR and gradient echo sequences. Coronal T2/ HASTE imaging. LIMITATIONS: None. FINDINGS: VISUALIZED UPPER ABDOMEN: Conventional radiographs dated 01/15/2020, prior CT dated 8 SEGMENTATION: No transitional anatomy. The lowest well-developed disc space is labeled L5-S1. ALIGNMENT: Anatomic. VERTEBRAE: There are wedge deformities at T11, T12, L1-L2 and to a lesser extent along the superior e ndplate of L4. No marrow edema. BONE MARROW: Normal. No marrow replacement or reactive changes. DISC SIGNAL: Desiccation at L4-L5 and L5-S1. There is desiccation at T12-L1 as well. POSTERIOR ELEMENTS: Generally intact. No pars defect evident. HARDWARE: None in the spine. CORD AND CONUS: Normal in size and signal intensity. Conus at the appropriate level. SOFT TISSUES: No aortic aneurysm seen. No bulky retroperitoneal adenopathy or mass. No paraspinal mas s or fluid. L1-L2: No significant spinal stenosis or exit foraminal stenosis. L2-L3: No significant spinal stenosis or exit foraminal stenosis. L3-L4: No significant spinal stenosis or exit foraminal stenosis. L4-L5: Mild annular bulging. No central stenosis or foraminal narrowing. L5-S1: Right paracentral protrusion. No nerve root impingement or high-grade central stenosis. LOWER THORACIC: Incompletely imaged. No stenosis seen. SACRUM: Visualized upper sacrum intact. OTHER: No other significant findings. IMPRESSION: 1. Right paracentral protrusion. No nerve root impingement or high-grade central stenos is. 2. Mild annular bulging at L4-5 without central stenosis or foraminal narrowing. 3. Chronic wedge deformities at T11, T12, L1, L2 and L4. TECHNICAL DOCUMENTATION: JOB ID: [id number] 2010 [employer] All Rights Reserved Reading location - IP/workstation name: [email or web address]
== END ==
LOC: RAD 13:12
PROVIDERS: ATTEND Physician Assistant Medical
DX: M48.56XA Collapsed vertebra, not elsewhere classified, lumbar region, initial encounter for fracture (principal)
CPT/HCPCS: 72148

== ENCOUNTER → 2020-02-14 | Outpatient (CLI) | payer MEDICAID ==
--- NOTE | 2020-02-14 15:38 | RADIOLOGY REPORT (SQ) ---
EXAM DESCRIPTION: CERV SP 3 VIEW OR LESS IMAGES COMPLETED DATE/TIME: 02/14/2020 2:24 pm REASON FOR STUDY: CRAMP AND SPASM (R25.2) R25.2 CRAMP AND SPASM COMPARISON: None. NUMBER OF VIEWS: Three views. TECHNIQUE: AP, lateral and odontoid radiographic images acquired of the cervical spine. LIMITATIONS: None. FINDINGS: MINERALIZATION: Normal. ALIGNMENT: Anatomic. VERTEBRAE: Vertebral bodies of normal height. DISCS: No significant disc space narrowing. No large osteophytes. HARDWARE: None in the spine. SOFT TISSUES: No masses or calcifications. Lung apices clear. OTHER: No other significant finding. IMPRESSION: NO SIGNIFICANT RADIOGRAPHIC FINDING IN THE CERVICAL SPINE. TECHNICAL DOCUMENTATION: JOB ID: [id number] 2010 [employer]- All Rights Reserved Reading location - IP/workstation name: [email or web address]
== END ==
LOC: RAD 13:41
PROVIDERS: ATTEND Physician Assistant Medical
DX: R25.2 Cramp and spasm (principal)
CPT/HCPCS: 72040

== ENCOUNTER 2020-07-05 19:26 | Emergency (ER) | payer MEDICAID ==
[2020-07-05 20:14] VITALS: BP 94/78
[2020-07-05] MEDS ORDERED: RINGERS SOLUTION,LACTATED 1,000 ML IV ONE (20:19)
[2020-07-05] MEDS ORDERED: METHYLPREDNISOLONE INJ 125 MG/2 ML SDV IV ONE (20:44)
--- NOTE | 2020-07-05 20:44 | ER Document Report ---
ED Medical Screen (RME) - General Chief Complaint: Low Back Pain Stated Complaint: FLANK PAIN Time Seen by Provider: 07/05/20 20:11 Primary Care Provider: MAI SEXTON PA [Primary Care Provider] - Follow up as needed Mode of Arrival: Wheelchair Information source: Patient Notes: Patient is a 44-year-old male comes emergency room with primary complaint of low back pain and spasms. Patient has a long significant past medical history for multiple back problems. Currently is in pain management with Dr. Ponce and currently takes Dilaudid 4 mg for pain. Patient states it is not touching his pain. He does state that over the course of his back problem he is occasionally 1-2 times a year had spasms that he had to go to the hospital for and or have him take extra pain medications but that this year is gone to about 10 times. He denies any known recent injuries. He does state that he has a flareup of his colitis which started today as well. His back pain has been going on for the past 4 days increasing over the past 2 days. Patient states he went to urgent care and they informed him that there is nothing they could do for him there to come to emergency room. He rates his pain at a 9 out of 10 currently. Patient denies any loss of urine or stool besides his colitis flareup. He took his last Dilaudid at 1:30 PM today. Patient is also on muscle relaxer cyclobenzaprine and states it is not helping him either. Physical examination shows patient to be a very frail appearing uncomfortable 44-year-old male who appears much older than his stated age. Cardiac shows to be tachycardic at 103 bpm but no murmurs are auscultated. Lungs: Bilateral breath sounds decreased throughout no rhonchi rales or wheeze heard. Abdomen: Bowel sounds are present all 4 quads nontender to palpate. Back examination and in his wheelchair very difficult to ascertain patient has moderate tenderness to palpation around L4-L5 area unable to move much of his right leg and is using a walker to get to his wheelchair. I have greeted and performed a rapid initial assessment of this patient. A comprehensive ED assessment and evaluation of the patient, analysis of test results and completion of the medical decision making process will be conducted by additional ED providers. Dictation of this chart was performed using voice recognition software; therefore, there may be some unintended grammatical errors. Since patient is having heavy diarrhea and is tachycardic we will give him a liter of fluid. We will give him a dose of steroids for his back at this time. At which will probably help some of his colitis as well. TRAVEL OUTSIDE OF THE [place] IN LAST 30 DAYS: No - Related Data Allergies/Adverse Reactions: iron Allergy (Verified 07/05/20 20:32) metronidazole Allergy (Verified 07/05/20 20:32) Sulfa (Sulfonamide Antibiotics) Allergy (Verified 07/05/20 20:32) Past Medical History - Social History Frequency of alcohol use: None Drug Abuse: None Renal/ Medical History: Denies: Hx Peritoneal Dialysis GI Medical History: Reports: Hx Ulcerative Colitis Physical Exam - Vital signs Vitals: Temp Pulse Resp BP 97.9 F 103 H 28 H 94/78 L 07/05/20 20:06 07/05/20 20:06 07/05/20 20:06 07/05/20 20:06 Course - Vital Signs Vital signs: Temp Pulse Resp BP Pulse Ox 97.9 F 103 H 28 H 94/78 L 07/05/20 20:06 07/05/20 20:06 07/05/20 20:06 07/05/20 20:06 Doctor's Discharge - Discharge Referrals: MAI SEXTON PA [Primary Care Provider] - Follow up as needed
[2020-07-05 22:19] LABS: ABSOLUTE BASOPHILS # (AUTO) 0.1 10^3/uL (0.0-0.2); ABSOLUTE EOSINOPHILS # (AUTO) 0.4 10^3/uL (0.0-0.6); ABSOLUTE NEUT (AUTO) 6.5 10^3/uL (1.7-8.2); MEAN CORPUSCULAR HGB CONC 33.9 g/dL (32.0-36.0); RED CELL DISTRIBUTION WIDTH 13.7 % (11.5-14.0); TOTAL CELLS COUNTED % (AUTO) 100 %
[2020-07-05 22:27] LABS: ABSOLUTE LYMPHOCYTES (AUTO) 1.1 10^3/uL (0.5-4.7); ABSOLUTE MONOCYTES (AUTO) 0.7 10^3/uL (0.1-1.4); BASOPHILS % (AUTO) 1.2 % (0-2); HEMATOCRIT 42.8 % (37.9-51.0); HEMOGLOBIN 14.5 g/dL (13.5-17.0); LYMPHOCYTES % (AUTO) 12.8 % (13-45); MEAN CORPUSCULAR HEMOGLOBIN 32.3 pg (27.0-33.4); MEAN CORPUSCULAR VOLUME 95 fl (80-97); PLATELET COUNT 553 10^3/uL (150-450); RED BLOOD COUNT 4.49 10^6/uL (4.35-5.55); WHITE BLOOD COUNT 8.9 10^3/uL (4.0-10.5)
[2020-07-05 22:34] LABS: ALBUMIN 3.1 g/dL (3.5-5.0); ALKALINE PHOSPHATASE 101 U/L (38-126); ANION GAP 5 (5-19); ASPARTATE AMINO TRANSFERASE 20 U/L (17-59); BILIRUBIN,DIRECT 0.1 mg/dL (0.0-0.4); BILIRUBIN,TOTAL 0.5 mg/dL (0.2-1.3); BLOOD UREA NITROGEN 7 mg/dL (7-20); CALCIUM 8.3 mg/dL (8.4-10.2); CARBON DIOXIDE 25 mmol/L (22-30); CHLORIDE 104 mmol/L (98-107); GLUCOSE 93 mg/dL (75-110); POTASSIUM 4.5 mmol/L (3.6-5.0); TOTAL PROTEIN 6.8 g/dL (6.3-8.2)
--- NOTE | 2020-07-06 17:18 | EKG REPORT ---
SEVERITY:- OTHERWISE NORMAL ECG - SINUS TACHYCARDIA : Confirmed by: Christie Parra MD 06-Jul-2020 17:18:06
== END 2020-07-06 00:54 | disposition left against medical advice (07) ==
LOC: ER 19:26
DX: M54.5 Low back pain (principal); R10.9 Unspecified abdominal pain; R19.7 Diarrhea, unspecified; R00.0 Tachycardia, unspecified; Z88.2 Allergy status to sulfonamides
CPT/HCPCS: 36415; 80053; 85025; 93005; 93010; 99281

== ENCOUNTER → 2020-07-18 | Outpatient (CLI) | payer MEDICAID ==
--- NOTE | 2020-07-19 09:04 | RADIOLOGY REPORT (SQ) ---
EXAM DESCRIPTION: MRI LUMBAR SPINE WITHOUT IMAGES COMPLETED DATE/TIME: 07/18/2020 5:50 pm REASON FOR STUDY: COLLAPSED VERTEBRA, NEC, LUMBAR REGION, INIT M48.56XA COLLAPSED VERTEBRA, NEC, SAE MBAR REGION, INIT COMPARISON: 02/05/2020 TECHNIQUE: Sagittal and Axial imaging includes T1, T2, STIR and gradient echo sequences. Coronal T2/ HASTE imaging. LIMITATIONS: None. FINDINGS: VISUALIZED UPPER ABDOMEN: Limited evaluation. No acute or suspicious findings suggested. SEGMENTATION: No transitional anatomy. The lowest well-developed disc space is labeled L5-S1. ALIGNMENT: Mild convex left scoliosis. VERTEBRAE: Chronic mild compression deformities T11, T12, L1, L5 and to lesser degree L4. No acute c ompression fracture. BONE MARROW: Normal. No marrow replacement or reactive changes. DISC SIGNAL: Desiccation multiple levels. POSTERIOR ELEMENTS: Generally intact. No pars defect evident. HARDWARE: None in the spine. CORD AND CONUS: Normal in size and signal intensity. Conus at the appropriate level. SOFT TISSUES: No aortic aneurysm seen. No bulky retroperitoneal adenopathy or mass. No paraspinal mas s or fluid. L1-L2: No significant spinal stenosis or exit foraminal stenosis. L2-L3: No significant spinal stenosis or exit foraminal stenosis. L3-L4: No significant spinal stenosis or exit foraminal stenosis. L4-L5: Central annular fissure. No significant stenosis. L5-S1: Left paracentral and upward disc protrusion contacting both transiting S1 nerve roots. Slight progression in canal narrowing compared to the prior. Facet arthropathy. LOWER THORACIC: Incompletely imaged. No stenosis seen. SACRUM: Visualized upper sacrum intact. OTHER: No other significant findings. IMPRESSION: Chronic disc herniation L5-S1 with some progression of central stenosis compared to the prior. TECHNICAL DOCUMENTATION: JOB ID: [id number] [employer]- All Rights Reserved Reading location - IP/workstation name: [email or web address]
== END ==
LOC: RAD 08:00
PROVIDERS: ATTEND Physician Assistant Medical
DX: M48.56XA Collapsed vertebra, not elsewhere classified, lumbar region, initial encounter for fracture (principal); M51.27 Other intervertebral disc displacement, lumbosacral region
CPT/HCPCS: 72148